=== PATIENT | male | born 1955 | race Caucasian/White ===

== ENCOUNTER → 2016-10-18 | Outpatient (CLI) | payer OTHER | LOC: FCPNEURO 12:00 | PROVIDERS: ATTEND Psychiatry & Neurology Sleep Medicine | DX: G47.33 Obstructive sleep apnea (adult) (pediatric) (principal) ==

== ENCOUNTER → 2016-12-22 | Outpatient (CLI) | payer OTHER | LOC: FIMAGING 15:49 | PROVIDERS: ATTEND Internal Medicine Critical Care Medicine | DX: R07.9 Chest pain, unspecified (principal) ==

== ENCOUNTER 2018-01-03 12:01 | Observation (INO) | payer OTHER ==
--- NOTE | 2018-01-03 12:22 | CPEKG ---
Heart Rate: 144 RR Interval: 417 P-R Interval: 136 QRSD Interval: 102 QT Interval: 312 QTC Interval: 483 P [place]: 0 QRS [place]: 66 T Wave [place]: 18 EKG Severity - ABNORMAL ECG - EKG Impression: SINUS TACHYCARDIA EKG Impression: LATERAL INFARCT, AGE INDETERMINATE EKG Impression: BORDERLINE T ABNORMALITIES, INFERIOR LEADS EKG Impression: BORDERLINE PROLONGED QT INTERVAL Electronically Signed By: Rae Coleman 03-Jan-2018 14:35:19
[2018-01-03] MEDS ORDERED: methylPREDNISolone SOD SUCC 125 MG/2 ML VIAL IVP ONE (12:26)
[2018-01-03] MEDS ORDERED: NS 500 ML IV ONE ×3 (12:26→14:48)
[2018-01-03 12:37] LABS: PLATELET COUNT 291 10^3/uL (150-400)
[2018-01-03 12:46] LABS: INR 0.99 (0.83-1.16); PROTIME(PATIENT) 13.3 SEC (12.0-15.0)
[2018-01-03] MEDS: IPRATROPIUM/ALBUTEROL 3 ML DEYVIAL IH ONE ×2 (12:51→12:52)
[2018-01-03] MEDS ORDERED: IPRATROPIUM/ALBUTEROL 3 ML DEYVIAL ONE (12:54)
--- NOTE | 2018-01-03 13:19 | EDPHY ---
H & P Time Seen by Provider: 01/03/18 12:25 HPI/ROS: HPI Shortness of breath, chest pains. 62-year-old male by private vehicle from the office of his primary care physician. This patient has a history of COPD. He reports that for the last 1- 2 months he has had intermittent exacerbations of his COPD. He takes Spiriva and albuterol at home. He reports that his symptoms are much worse with any exertion. He reports significantly worse shortness of breath with exertion. He reports he had 1 of these episodes today and went to see his primary care physician. He reports having a sensation of a fast heart rate and he also gets chest pain with exertion on top of the shortness of breath which she describes as a pressure and aching like sensation. He was quickly evaluated at his primary care physician's office and sent to our emergency department for evaluation. At rest he feels mildly short of breath but does not have chest pain. He states that he still feels like his heart is racing. He reports this is typical of his previous COPD exacerbations. ROS: Constitutional: No fever, no chills. No weakness. Eyes: No discharge. No changes in vision. ENT: No sore throat. No nasal congestion or rhinorrhea. Respiratory: No cough. As above. Cardiac: As above. Gastrointestinal: No abdominal pain, no vomiting, no diarrhea. Genitourinary: No hematuria. No dysuria or increased frequency with urination. Musculoskeletal: No back pain. No neck pain. No myalgias or arthralgias. Skin: No rashes. Neurological: No headache. No focal weakness or altered sensation. Past medical history: COPD, MRSA cellulitis of the finger, arthritis of the cervical and lumbar spine, peripheral neuropathies, hepatitis-C. Social history: Denies smoking. No alcohol. Currently here by himself. Physical Exam: General Appearance: Alert, anxious but not in distress. Mildly dyspneic at rest This patient is responding to questions appropriately and in full sentences. This patient appears well-hydrated and well-nourished. Eyes: Pupils equal and round no pallor or injection. No lid edema, erythema or injection. Respiratory: There are no retractions, lung sounds decreased bilaterally with shallow air movement and scant rhonchi. Mild tachypnea at 22 Cardiovascular: Regular rate and rhythm. Tachycardia. No murmur appreciated. Gastrointestinal: Abdomen is soft and nontender, no masses, bowel sounds normal. No focal tenderness at McBurney's point. No Duenas sign. Neurological: Motor sensory function is grossly intact. Cranial nerves are normal. Gait is normal. Skin: Warm and dry, no rashes. Musculoskeletal: Neck is supple and nontender. Extremities are symmetrical. All joints range without pain or impingement. Psychiatric: No agitation. No depression. Database: EKG: EKG time is 12:20 p.m.; EKG shows a narrow complex normal sinus tachycardia versus possible atrial flutter with a ventricular rate of 144. The [place], QRS, QT intervals are within normal limits. There are no ST-T wave changes indicative of ischemic or injury pattern. No evidence of right heart strain. Interpreted by me. EKG time is 1:18 p.m.; EKG shows a narrow complex sinus tachycardia versus atrial flutter ventricular rate of 141. The [place], QRS, QT intervals are within normal limits. There are no ST-T wave changes indicative of ischemic or injury pattern. No evidence of right heart strain. Interpreted by me. EKG time is 2:04 p.m.; EKG shows a narrow complex atrial flutter with predominantly 2-1 and 3-1 av block. Otherwise unchanged from above. Interpreted by me. Imaging: Chest x-ray AP portable; the cardiac mediastinal silhouette is unremarkable. Chronically elevated left hemidiaphragm. No evidence of infiltrate or pneumothorax. No acute cardiopulmonary disease process noted. Interpreted by me. Procedures: Emergency department course: IV placed. Vital signs reviewed. Patient placed on a guest relation officer. He was started on IV normal saline with 500 cc to be given over the next 30 min. He was initially given albuterol/Atrovent nebulizers x3. He was given 125 mg of IV Solu-Medrol. 1:30 p.m., patient re-evaluated. Feeling better after above medications. Improved air movement on pulmonary exam but still diminished. Patient pulse oximetry is 94% on room air. EKG was repeated. I feel this is more atrial flutter. He will be started on IV diltiazem, 25 mg slow push. 1:50 p.m., patient re-evaluated. Resting comfortably at this time. Blood pressure 106/73. clinical research monitor shows a narrow complex sinus rhythm with ventricular rate of 88. Room air pulse oximetry currently 95%. EKG to be repeated. Patient will be started on a steady state diltiazem drip at 10 milligrams/hour. Hospitalist evelio. 2:00 p.m., spoke with on-call hospitalist. Case discussed in detail. Patient accepted for admission under the care of Dr. Sierra. His remaining emergency department course under my care has been uneventful. He was admitted to telemetry in stable and improved condition. Differential Diagnosis: The differential diagnosis on this patient includes but is not limited to COPD exacerbation, sinus tachycardia, atrial flutter, SVT. This represents a partial list of diagnoses considered. These considerations are based on history , physical exam, past history, reassessment and diagnostic testing. Smoking Status: Former smoker Constitutional: Initial Vital Signs Temperature (C) 36.5 C 01/03/18 12:07 Heart Rate 142 H 01/03/18 12:07 Respiratory Rate 20 01/03/18 12:07 Blood Pressure 99/75 L 01/03/18 12:07 O2 Sat (%) 92 01/03/18 12:07 O2 Delivery Mode Nasal Cannula O2 (L/minute) 4 Allergies/Adverse Reactions: No Known Allergies Allergy (Verified 07/02/12 18:07) Home Medications: Medication Instructions Recorded Albuterol [Proventil Inhaler HFA 1 - 2 puffs IH Q4-6PRN PRN 01/03/18 (*)] Aspirin [Aspirin 81mg (*)] 81 mg PO DAILY 01/03/18 Citalopram Hydrobromide [Celexa] 40 mg PO DAILY 01/03/18 Fluticasone/Salmeter 500/50Mcg 1 puffs IH BID 01/03/18 [Advair 500/50 (*)] Umeclidinium [place] [Incruse 1 puffs IH DAILY 01/03/18 Ellipta] Medical Decision Making Critical Care Time: I spent a total of 37 minutes of critical care time in obtaining history, performing a physical exam, bedside monitoring of interventions, collecting and interpreting tests and discussion with consultants but not including time spent performing procedures. - Data Points Laboratory Results: Laboratory Results 01/03/18 12:30 01/03/18 12:30 Medications Given: Albuterol/Ipratropium (Duoneb) 3 ml IH QID NIMESH Stop: 07/02/18 15:59 Last Admin: 01/04/18 05:24 Dose: 3 ml Enoxaparin Sodium (Lovenox) 100 mg SC BID [facility] Stop: 07/02/18 20:59 Last Admin: 01/03/18 19:50 Dose: 100 mg Fluticasone/Salmeterol (Advair) 1 puffs IH BID NIMESH Stop: 07/02/18 20:59 Last Admin: 01/03/18 20:25 Dose: 1 puffs Discontinued Medications Albuterol/Ipratropium (Duoneb) 9 ml IH EDNOW ONE Stop: 01/03/18 12:27 Last Admin: 01/03/18 12:52 Dose: 3 ml Diltiazem HCl (Cardizem 25 Mg/5 Ml Vial) 25 mg IVP EDNOW ONE Stop: 01/03/18 13:29 Last Admin: 01/03/18 13:34 Dose: 25 mg Sodium Chloride (Ns) 500 mls @ 1,000 mls/hr IV EDNOW ONE PRN Reason: Protocol Stop: 01/03/18 12:55 Last Admin: 01/03/18 12:53 Dose: 500 mls Diltiazem HCl 125 mg/ Dextrose 125 mls @ 0 mls/hr IV EDNOW ONE; As Directed PRN Reason: Protocol Stop: 01/03/18 13:29 Last Admin: 01/03/18 14:06 Dose: 125 mls Sodium Chloride (Ns) 500 mls @ 1,000 mls/hr IV EDNOW ONE PRN Reason: Protocol Stop: 01/03/18 13:59 Last Admin: 01/03/18 13:36 Dose: 500 mls Sodium Chloride (Ns) 500 mls @ 0 mls/hr IV ONCE ONE PRN Reason: Wide Open Stop: 01/03/18 14:49 Last Admin: 01/03/18 14:49 Dose: 500 mls Methylprednisolone Sodium Succinate (Solu-Medrol) 125 mg IVP EDNOW ONE Stop: 01/03/18 12:27 Last Admin: 01/03/18 12:52 Dose: 125 mg Departure - Departure Disposition: [facility] Acute Clinical Impression: Supraventricular tachycardia, COPD exacerbation
--- NOTE | 2018-01-03 13:21 | CPEKG ---
Heart Rate: 141 RR Interval: 426 P-R Interval: 152 QRSD Interval: 88 QT Interval: 292 QTC Interval: 447 P [place]: 262 QRS [place]: 67 T Wave [place]: 47 EKG Severity - ABNORMAL ECG - EKG Impression: ECTOPIC ATRIAL TACHYCARDIA EKG Impression: MINIMAL ST DEPRESSION, INFERIOR LEADS Electronically Signed By: Rae Coleman 03-Jan-2018 14:35:19
[2018-01-03] MEDS ORDERED: DILTIAZEM 25 MG/5 ML VIAL IVP ONE (13:28)
[2018-01-03] MEDS ORDERED: DILTIAZEM 125 MG in D5W 125 ML IV ONE (13:28)
--- NOTE | 2018-01-03 14:06 | CPEKG ---
Heart Rate: 90 RR Interval: 667 QRSD Interval: 98 QT Interval: 404 QTC Interval: 495 QRS [place]: 65 T Wave [place]: 37 EKG Severity - ABNORMAL ECG - EKG Impression: A-FLUTTER W/ PREDOM 3:1 AV BLOCK, A-RATE 283 EKG Impression: ST DEPRESSION, CONSIDER ISCHEMIA, INF LEADS EKG Impression: BORDERLINE PROLONGED QT INTERVAL Electronically Signed By: Rae Coleman 03-Jan-2018 14:35:19
[2018-01-03] MEDS ORDERED: ALBUTEROL 3 ML DEYVIAL IH PRN (15:34)
[2018-01-03] MEDS ORDERED: PROMETHAZINE HCL 25 MG/ML INJ IVP PRN (15:34)
[2018-01-03] MEDS ORDERED: oxyCODONE IR 5 MG TAB PO PRN (15:34)
[2018-01-03] MEDS ORDERED: ONDANSETRON 4 MG/2 ML VIAL IVP PRN (15:34)
[2018-01-03] MEDS ORDERED: ACETAMINOPHEN 325 MG TAB PO PRN (15:34)
[2018-01-03] MEDS ORDERED: ONDANSETRON DISINTEGRATING 4 MG TAB PO PRN (15:34)
--- NOTE | 2018-01-03 15:46 | PDGENHP ---
History and Physical - Chief Complaint sob,fast heart rate - History of Present Illness 62 yo M with PMH of severe O2 dependent COPD presenting with c/o SOB, heart racing and chest pain with exertion. Patient notes that these sxs have been going on for about the last 2 months, actually worse about a month ago. Today he was seen by his PCP who noted that his heart was fast and irregular and recommended he come to the ER for further evaluation. He notes that he has had these bouts of worsening sob and chest and full body pain that are triggered by exertion. He states that the bouts are so severe that he feels as if he may lose consciousness when they occur. The sxs all improve with rest and time. His last severe bout like that was a couple of weeks or a month ago--he did not seek care at that time. In between he just has his usual shortness of breath which he does note is overall getting worse. He does not have a history of heart disease. He has not had swelling or pain in his legs. He has not had recent changes in his weight. History Information - Allergies/Home Medication List Allergies/Adverse Reactions: No Known Allergies Allergy (Verified 07/02/12 18:07) Home Medications: Albuterol [Proventil Inhaler HFA (*)] 1 - 2 puffs IH Q4-6PRN PRN 01/03/18 [Last Taken Unknown] Aspirin [Aspirin 81mg (*)] 81 mg PO DAILY 01/03/18 [Last Taken 01/03/18] Citalopram Hydrobromide [Celexa] 40 mg PO DAILY 01/03/18 [Last Taken Unknown] Fluticasone/Salmeter 500/50Mcg [Advair 500/50 (*)] 1 puffs IH BID 01/03/18 [ Last Taken 01/03/18] Umeclidinium [place] [Incruse Ellipta] 1 puffs IH DAILY 01/03/18 [Last Taken 04/15] I have personally reviewed and updated: family history, medical history, social history, surgical history - Past Medical History COPD Additional medical history: hepatitis C--reportedly cured. MRSA cellulitis. peripheral neuropathy. chronic hypoxic respiratory failure--2-3L at baseline - Surgical History Reports: no pertinent surgical hx - Family History Positive for: diabetes type II (mother), stroke (father and sister) - Social History Smoking Status: Former smoker (quit in 2013) Alcohol Use: Sober Drug Use: None Additional social history: single, on disability Review of Systems Review of Systems: ROS: 10pt was reviewed & negative except for what was stated in HPI & below Physical Exam Physical Exam: Temp Pulse Resp BP Pulse Ox 36.8 C 85 17 104/76 96 01/03/18 15:32 01/03/18 15:32 01/03/18 15:32 01/03/18 15:32 01/03/18 15:32 Constitutional: no apparent distress, appears nourished Eyes: PERRL, anicteric sclera Ears, Nose, Mouth, Throat: moist mucous membranes, hearing normal Cardiovascular: pulses symmetric bilaterally, tachycardia, No edema Respiratory: no respiratory distress, reduced air movement, expiratory wheeze Gastrointestinal: normoactive bowel sounds, soft, non-tender abdomen, no palpable masses Genitourinary: no bladder tenderness Skin: warm, normal color Musculoskeletal: full muscle strength, no muscle tenderness, No asymmetric calves Neurologic: AAOx3 Psychiatric: interacting appropriately, not anxious, not encephalopathic Lab Data & Imaging Review 01/03/18 12:30 01/03/18 12:30 WBC 15.79 10^3/uL (3.80-9.50) H 01/03/18 12:30 RBC 4.53 10^6/uL (4.40-6.38) 01/03/18 12:30 Hgb 14.1 g/dL (13.7-17.5) 01/03/18 12:30 Hct 42.3 % (40.0-51.0) 01/03/18 12:30 MCV 93.4 fL (81.5-99.8) 01/03/18 12:30 MCH 31.1 pg (27.9-34.1) 01/03/18 12:30 MCHC 33.3 g/dL (32.4-36.7) 01/03/18 12:30 RDW 13.1 % (11.5-15.2) 01/03/18 12:30 Plt Count 291 10^3/uL (150-400) 01/03/18 12:30 MPV 9.6 fL (8.7-11.7) 01/03/18 12:30 Neut % (Auto) 65.9 % (39.3-74.2) 01/03/18 12:30 Lymph % (Auto) 23.6 % (15.0-45.0) 01/03/18 12:30 [place] % (Auto) 7.6 % (4.5-13.0) 01/03/18 12:30 Eos % (Auto) 1.9 % (0.6-7.6) 01/03/18 12:30 Baso % (Auto) 0.3 % (0.3-1.7) 01/03/18 12:30 Nucleat RBC Rel Count 0.0 % (0.0-0.2) 01/03/18 12:30 Absolute Neuts (auto) 10.40 10^3/uL (1.70-6.50) H 01/03/18 12:30 Absolute Lymphs (auto) 3.73 10^3/uL (1.00-3.00) H 01/03/18 12:30 Absolute Monos (auto) 1.20 10^3/uL (0.30-0.80) H 01/03/18 12:30 Absolute Eos (auto) 0.30 10^3/uL (0.03-0.40) 01/03/18 12:30 Absolute Basos (auto) 0.05 10^3/uL (0.02-0.10) 01/03/18 12:30 Absolute Nucleated RBC 0.00 10^3/uL (0-0.01) 01/03/18 12:30 Immature Gran % 0.7 % (0.0-1.1) 01/03/18 12:30 Immature Gran # 0.11 10^3/uL (0.00-0.10) H 01/03/18 12:30 PT 13.3 SEC (12.0-15.0) 01/03/18 12:30 INR 0.99 (0.83-1.16) 01/03/18 12:30 APTT 23.0 SEC (23.0-38.0) 01/03/18 12:30 D-Dimer 0.51 ug/mLFEU (0.00-0.50) H 01/03/18 12:30 Sodium 143 mEq/L (135-145) 05/08/18 12:30 Potassium 4.2 mEq/L (3.5-5.2) 01/03/18 12:30 Chloride 105 mEq/L (97-110) 01/03/18 12:30 Carbon Dioxide 26 mEq/l (22-31) 01/03/18 12:30 Anion Gap 12 mEq/L (8-16) 01/03/18 12:30 BUN 16 mg/dL (7-23) 01/03/18 12:30 Creatinine 0.9 mg/dL (0.7-1.3) 01/03/18 12:30 Estimated GFR > 60 01/03/18 12:30 Glucose 98 mg/dL (70-100) 01/03/18 12:30 Calcium 8.8 mg/dL (8.5-10.4) 01/03/18 12:30 Troponin I < 0.012 ng/mL (0.000-0.034) 01/03/18 12:30 NT-Pro-B Natriuret Pep 211 pg/mL (0-125) H 01/03/18 12:30 Visualized and Interpreted Chest x-ray results: Yes Chest X-Ray results: no infiltrate, other (mild CM, chronically elevated left hemidiaphragm) Visualized and Interpreted EKG results: Yes EKG additional interpertation: a flutter 3:1 conduction Assessment & Plan Assessment: Supraventricular tachycardia (Acute) COPD exacerbation (Acute) 62 yo M with PMH of severe O2 dependent COPD pw atrial flutter and c/o chest pain with exertion # atrial flutter: with rates up to the 140s, started on diltiazem in ER with improved rate control. Sounds as though patient has been having symptomatic bouts of a flutter in the last couple of months with exertion. Plan will be to monitor on telemetry, trend serial trops and obtain echo in am. Asked cardiology to eval in am for ongoing management. If echo concerning will need further ischemic w/u. # exertional chest pain: as above and suspect this has been occurring in setting of a flutter, echo and perhaps further ischemic w/u stress versus cath # severe copd: without e/o acute exacerbation however air movement very limited , continue ellipta and advair and prn nebs, was given IV steroids in ER x 1 but will hold off on continuing this at this time given lack of evidence of exacerbation # chronic hypoxic respiratory failure: chronically on 2-3L but per his report intermittently more if his o2 sats are low or if he feels sob, currently appears to be at baseline # leukocytosis: mildly elevated and without e/o pna or other localizing sxs to suggest infection, will trend but suspect stress response # observation status, will likely require < 48 hours stay for eval/mgmt of above Patient new to my care. Old records reviewed and summarized as above. Care plan reviewed with ER doctor including plans for tele monitoring.
[2018-01-03] MEDS ORDERED: DILTIAZEM 125 MG in D5W 125 ML IV SCH (16:45)
[2018-01-03] MEDS: IPRATROPIUM/ALBUTEROL 3 ML DEYVIAL IH SCH ×2 (17:39→20:26)
[2018-01-03] MEDS: ENOXAPARIN 100 MG/ML SYR SC SCH (19:50)
[2018-01-03] MEDS: FLUTICASONE/SALMETER 500/50MCG DISKUS IH SCH (20:25)
[2018-01-03] MEDS ORDERED: ENOXAPARIN 40 MG/0.4 ML SYR SC SCH (21:00)
[2018-01-04 05:00] LABS: PLATELET COUNT 239 10^3/uL (150-400)
[2018-01-04] MEDS: IPRATROPIUM/ALBUTEROL 3 ML DEYVIAL IH SCH ×3 (05:24→16:24)
[2018-01-04] MEDS ORDERED: ATROPINE SULFATE 1 MG/10 ML SYR IVP ONE (08:26)
--- NOTE | 2018-01-04 08:57 | CPEKG ---
Heart Rate: 88 RR Interval: 682 QRSD Interval: 150 QT Interval: 404 QTC Interval: 489 QRS [place]va: 68 T Wave Ava: 65 EKG Severity - ABNORMAL ECG - EKG Impression: A-FLUTTER W/ PREDOM 3:1 AV BLOCK, A-RATE 272 EKG Impression: NONSPECIFIC INTRAVENTRICULAR CONDUCTION DELAY EKG Impression: LATERAL INFARCT, AGE INDETERMINATE Electronically Signed By: Alexandr Berry 06-Jan-2018 13:06:59
[2018-01-04] MEDS ORDERED: NON-FORMULARY NEW DRUG (Citalopram Hydrobromide [Celexa] 40 MG) PO SCH (09:00)
[2018-01-04] MEDS ORDERED: ASPIRIN 81 MG CHEWABLE TAB PO SCH (09:00)
[2018-01-04] MEDS ORDERED: ENOXAPARIN 40 MG/0.4 ML SYR SC SCH (09:00)
[2018-01-04] MEDS ORDERED: CITALOPRAM 20 MG TAB PO SCH (09:00)
[2018-01-04] MEDS ORDERED: UMECLIDINIUM BROMIDE IH SCH ×2 (09:00)
[2018-01-04] MEDS: FLUTICASONE/SALMETER 500/50MCG DISKUS IH SCH (09:50)
[2018-01-04] MEDS: ENOXAPARIN 100 MG/ML SYR SC SCH (09:54)
--- NOTE | 2018-01-04 10:04 | HOSPPROG ---
Hospitalist Progress Note Assessment/Plan: 62 yo M w 02 dependent copd admitted w new aflutter w RVR aflutter: new rate controlled on dilt gtt therapeutic enoxaparin started ALLY cardioversion today CHRF: on 02 at baseline breathing, per pt, is at baseline cxr w no focal infiltrate (interp by me) chest pressure: outpt stress normal trop copd: continue meds proph: anticoagulated dispo: pending results of cardioversion Subjective: does not think he is having a copd flare. ekg's w aflutter ( multiple interp by me). case d/w dr carroll Objective: Vital Signs Temp Pulse Resp BP Pulse Ox 36.8 C 86 17 109/75 97 01/04/18 07:28 01/04/18 09:59 01/04/18 09:59 01/04/18 07:28 01/04/18 09:59 Laboratory Results 01/04/18 03:46 01/04/18 03:46 01/03/18 01/04/18 01/05/18 05:59 05:59 05:59 Intake Total 1950 Output Total 700 Balance 1250 PT 13.3 SEC (12.0-15.0) 01/03/18 12:30 INR 0.99 (0.83-1.16) 01/03/18 12:30 - Physical Exam Constitutional: no apparent distress, appears nourished Eyes: PERRL, anicteric sclera Ears, Nose, Mouth, Throat: moist mucous membranes, hearing normal Cardiovascular: irregularly irregular, No systolic murmur, No tachycardia Respiratory: no respiratory distress, no rales or rhonchi Gastrointestinal: normoactive bowel sounds, soft, non-tender abdomen Genitourinary: no bladder fullness, No abbott in urethra Skin: warm, normal color Musculoskeletal: full muscle strength Neurologic: AAOx3 Psychiatric: interacting appropriately ICD10 Worksheet Patient Problems: Problems Problem Status Onset COPD exacerbation Acute Supraventricular tachycardia Acute Acute respiratory failure Acute COPD with acute exacerbation Acute Community acquired bacterial pneumonia Acute
--- NOTE | 2018-01-04 10:10 | GCON ---
[f rep st] CONSULTATION DATE OF CONSULTATION: 01/04/2018 CHIEF COMPLAINT: We have been asked by Dr. Soria to evaluate this patient with a chief complaint of atrial flutter. HISTORY OF PRESENT ILLNESS: The patient is a 62-year-old gentleman with a history of O2 dependent CO PD, who presented to the emergency department on 01/03/2018 with palpitations. The patient was in hi s usual state of health until approximately 1 month prior to admission, when he noted the abrupt onse t of palpitations. The patient states that his heart rate was approximately 150 beats per minute on pulse oximeter monitoring. The patient denies obvious precipitating factors. Since the onset of pal pitations, patient has noted he is more short of breath than usual and has also noticed some chest ti ghtness across his chest. The patient states his physical activity has declined significantly as a r esult of these symptoms. The patient does report a history of waking up short of breath. This has b een present for approximately 1 year and has not changed recently. The patient denies a previous his tory of coronary artery disease. Although he does have risk factors including age, and tobacco use. No previous history of arrhythmias, stroke, or TIA. PAST MEDICAL HISTORY: COPD. MEDICATIONS: Please see medicine reconciliation form. ALLERGIES: No known drug allergies. SOCIAL HISTORY: Patient moved to [place] in 2012. He is no longer smoking. He denies problems wit h alcohol. FAMILY HISTORY: Negative for coronary artery disease. Patient does report a history of stroke withi n the family. REVIEW OF SYSTEMS: A 10-point review of systems is negative, except as noted in HPI. PHYSICAL EXAMINATION: GENERAL: The patient is resting in bed. He appears to be in no acute distres s. VITAL SIGNS: Temperature is afebrile. Pulse is 86, blood pressure 109/75, respiratory rate is 2 2, SaO2 is 97% on 4 L nasal cannula. HEENT: Normocephalic atraumatic. Extraocular muscles intact. Patient does have evidence of dry blood coming from his nose. LUNGS: Coarse bronchial breath sound s bilaterally. CARDIOVASCULAR: Regular rate and rhythm and rhythm. S1, S2. No murmurs, rubs, or g allops appreciated. ABDOMEN: Soft, nontender. No hepatosplenomegaly. Aorta could not be adequatel y palpated. EXTREMITIES: Mild bilateral lower extremity edema. SKIN: No evidence of rashes. NEUR O: Nonfocal. LABORATORY: White blood cell count 10.32, hemoglobin 12.4, hematocrit 37.8, platelet count is 239. Sodium 143, potassium 5.3, chloride 106, CO2 29, BUN 15, creatinine 0.7. Troponin within normal limi ts x3. D-dimer is borderline elevated at 0.51. EKG demonstrates atrial flutter at a heart rate of 8 8 beats per minute. There are no acute ST or T-wave changes. ASSESSMENT AND PLAN: The patient is a 62-year-old gentleman with return: 1. Atrial flutter. The patient presents with new onset of atrial flutter. There are no obvious pre cipitating factors. The onset was approximately 1 month ago based on history. He is currently rate controlled with diltiazem and anticoagulated with Lovenox. Echocardiogram in 2014 demonstrated no si gnificant structural heart disease. Reviewed treatment strategies with the patient including rate co ntrol/anticoagulation, ALLY cardioversion, and anticoagulation followed by cardioversion. Patient wis hes to pursue ALLY cardioversion given he is quite symptomatic when in atrial flutter. His [id number] score is 0. We will plan on anticoagulating patient with Eliquis for 1 month post procedure at which time, he could switch to aspirin if no recurrent episodes are found and no significant structural he art disease identified by recent echocardiogram. 2. Chest pain. The patient reports onset of chest pain described as a tightness. The chest discomf ort is associated with the onset of atrial flutter. Given his risk factors. [facility] for risk stratification after conversion to normal sinus rhythm. /[id number]/MODL
--- NOTE | 2018-01-04 11:44 | ECHO ---
[email or web address] [address] Main: [phone] Fax: [email or web address] Echocardiogram Name: ELINA MARSH MR#: [id number] Study Date: 01/03/2018 Study Time: 02:02 PM Date of : 1955 Age: 62 year(s) Height: 188 cm (74 in.) Weight: 104.33 kg (230 lb.) BSA: 2.31 m2 Gender: Male Examination: Echo Indication: NEW DX A FLUTTER Image Quality: Technically Difficult Contrast: Requested by: Jessee Soria BP: 98 mmHg/78 mmHg Heart Rate: Rhythm: Indication: NEW DX A FLUTTER Procedure Staff Slumber Room Attendant: Barbra Klein RDCS Reading Physician: Amber Tesfaye MD Requesting Provider: Conclusions: Normal size left ventricle. Borderline concentric LV hypertrophy. Mildly reduced systolic LV function. EF is 42 %. No regional wall motion abnormality. Normal size right ventricle. Normal RV function. The left atrium is mildly dilated. The right atrium is mildly dilated. Mild mitral valve regurgitation is present. Mild tricuspid regurgitation is present. The pulmonary artery pressure is normal. Right ventricular systolic pressure measures 17mmHg. Compared with 01/19/2015 LV systolic function is now decreased. Esimtated PA systolic pressure is lower on current study Measurements: Chambers Valvular Assessment AV/MV Valvular Assessment TV/PV Normal Normal Normal Name Value Range Name Value Range Name Value Range Ao Michaelle (2D): 2.8 cm (1.4 cm-2.6 AV meanP mmHg ( - ) TR Vmax: 1.70 mm/s ( - ) cm) LORI (VTI): 1.5 cm ( - ) TR PGmax: 12 mmHg ( - ) IVSd (2D): 1.1 cm (0.6 cm-1.1 MV E Vmax: 0.98 m/s ( - ) syst. PAP: 17 mmHg ( - ) cm) MV A Vmax: 0.49 m/s ( - ) PV Vmax: 0.77 m/s (0.6 m/s-0.9 LVDd (2D): 5.5 cm (4.2 cm-5.9 MV E/A: 2.00 ( - ) m/s) cm) MV PHT: 0.042 s ( - ) PV PGmax: 2 mmHg ( - ) LVDs (2D): 4.2 cm (2.1 cm-4 cm) MVA (PHT): 5.2 s ( - ) LVPWd (2D): 1.0 cm (0.6 cm-1 cm) Patient: ELINA MARSH Study Date: 01/03/2018 Page 1 of 2 02:02 PM LVOTd 1.9 cm 1.9 cm mm LVEF (BP): 42 % (>=55 %) RVDd(2D): 2.7 cm (1.9 cm-3.8 cmmm) Continued Measurements: Chambers Valvular Assessment AV/MV Valvular Assessment TV/PV Name Value Name Value Name Value LADs: 3.7 cm MV DecTime: 134 m/s CVP (est.): 5 mmHg LADs Lon.2 cm MV E' Septal: 0.10 m/s LA Area: 24.8 cm2 MV E/E' Septal: 9.40 LA Volume: 84 ml MV E/E' Lateral: 7.80 LA Volume Index: 36.4 ml/m2 RA Area: 19.4 cm2 Additional Vessels Name Value Ao Ascendin.1 cm Inferior Vena Cava: 2.2 cm Findings: Left Ventricle: Normal size left ventricle. Borderline concentric LV hypertrophy. Mildly reduced systolic LV function. EF is 42 %. No regional wall motion abnormality. Right Ventricle: Normal size right ventricle. Normal RV function. Left Atrium: The left atrium is mildly dilated. Right Atrium: The right atrium is mildly dilated. Mitral Valve: The mitral valve is normal in appearance and function. Mild mitral valve regurgitation is present. No mitral stenosis is present. Aortic Valve: The aortic valve is normal in appearance and function. There is no significant aortic valve regurgitation. No aortic valve stenosis is present. Tricuspid Valve: The tricuspid valve is normal in appearance and function. Mild tricuspid regurgitation is present. The pulmonary artery pressure is normal. Right ventricular systolic pressure measures 17mmHg. Pulmonic Valve: The pulmonic valve is normal in appearance and function. There is no pulmonic regurgitation seen. Aorta: The aorta is normal. Normal size aortic root measuring 2.8 cm. Normal size ascending aorta measuring 3.1 cm. IVC: The IVC is normal sized. Pericardium: No pericardial effusion. No pleural effusion. Exam Comments: Limited windows. Technically difficult due to patient body habitus. (No Signature Object) Patient: ELINA MARSH Study Date: 01/03/2018 Page 2 of 2 02:02 PM [id number]
[2018-01-04] MEDS ORDERED: PROPOFOL 200 MG/20 ML VIAL ONE ×2 (12:43)
[2018-01-04] MEDS ORDERED: ATROPINE SULFATE 1 MG/10 ML SYR ONE (12:47)
--- NOTE | 2018-01-04 12:59 | PDANEPAE ---
ANE History of Present Illness ALLY and sync. CV ANE Past Medical History - Cardiovascular History Hx Hypertension: No Hx Arrhythmias: Yes Hx Chest Pain: No Hx CHF / Valvular Disease: No Hx Palpitations: Yes - Pulmonary History Hx COPD: Yes Hx Asthma/Reactive Airway Disease: No Hx Recent Upper Respiratory Infection: No Hx Oxygen in Use at Home: Yes O2 in Use at Home (L/minute): 3 Hx Sleep Apnea: No - Endocrine History Hx Diabetes: No Hypothyroid: No Hyperthyroid: No Obesity: moderate - Renal History Hx Renal Disorders: No - Liver History Hx Hepatic Disorders: No - Neurological & Psychiatric Hx Hx Neurological and Psychiatric Disorders: No - Cancer History Hx Cancer: No - Chronic Pain History Chronic Pain: Yes - Surgical History Prior Surgeries: None ANE Review of Systems Review of Systems: - Exercise capacity METS (RN): 3 METS ANE Patient History - Allergies Allergies/Adverse Reactions: No Known Allergies Allergy (Verified 07/02/12 18:07) - Home Medications Home Medications: Albuterol [Proventil Inhaler HFA (*)] 1 - 2 puffs IH Q4-6PRN PRN 01/03/18 [Last Taken Unknown] Aspirin [Aspirin 81mg (*)] 81 mg PO DAILY 01/03/18 [Last Taken 01/03/18] Citalopram Hydrobromide [Celexa] 40 mg PO DAILY 01/03/18 [Last Taken Unknown] Fluticasone/Salmeter 500/50Mcg [Advair 500/50 (*)] 1 puffs IH BID 01/03/18 [ Last Taken 01/03/18] Umeclidinium [place] [Incruse Ellipta] 1 puffs IH DAILY 01/03/18 [Last Taken 04/15] - Smoking Hx Smoking Status: Former smoker - Alcohol Use Alcohol Use: Sober - Family Anes Hx Family Anes Hx: none ANE Labs/Vital Signs - Labs Result Diagrams: 01/04/18 03:46 01/04/18 03:46 - Vital Signs Blood Pressure: 109/75 Heart Rate: 86 Respiratory Rate: 17 O2 Sat (%): 97 Height: 187.96 cm Weight: 106.1 kg ANE Physical Exam - Airway Neck exam: FROM Mallampati Score: Class 2 Mouth exam: poor dentition (edentulous) - Pulmonary Pulmonary: clear to auscultation (distant) - Cardiovascular Cardiovascular: irregularly irregular - ASA Status ASA Status: III ANE Anesthesia Plan Anesthesia Plan: GA with mask
--- NOTE | 2018-01-04 13:27 | CPIP ---
[f rep st] INVASIVE CARDIAC PROCEDURE DATE OF PROCEDURE: 01/04/2018 PROCEDURE PERFORMED: ALLY cardioversion. INDICATION: Atrial flutter. Anticoagulation. Patient had been anticoagulated since admission with Lovenox 100 mg subcu twice daily. CONSENT: Signed and in front of chart. ANESTHESIA: Please see Anesthesia report. TRANSESOPHAGEAL ECHOCARDIOGRAM: Please see formal transesophageal echocardiogram report. Transesoph ageal echocardiogram demonstrated no evidence of thrombus in the left atrium or left atrial appendage . SPECIFICS: 1. Pads placed in anterior posterior position. 2. 200 joules synchronized delivered x1 with return to normal sinus rhythm. COMPLICATIONS: None. CONCLUSIONS: Status post successful DC cardioversion of atrial flutter back to normal sinus rhythm. /[id number]/MODL
--- NOTE | 2018-01-04 13:30 | CPEKG ---
Heart Rate: 68 RR Interval: 882 P-R Interval: 124 QRSD Interval: 104 QT Interval: 424 QTC Interval: 451 P Franklin: 102 QRS [place]: 74 T Wave Franklin: 70 EKG Severity - ABNORMAL ECG - EKG Impression: SINUS RHYTHM Electronically Signed By: Alexandr Berry 05-Jan-2018 12:46:15
--- NOTE | 2018-01-04 13:35 | POSTANESTH ---
Post Anesthetic Evaluation Cardiovascular Status: Similar to Pre-Op Cond Respiratory Status: Similar to Pre-op Cond. Level of Consciousness/Mental Status: Can Participate in Eval Pain Control: Adequate, Prn Tx Ordered Nausea/Vomiting Control: Adequate, Prn Tx Ordered Complications Possibly Related to Anesthesia: None Noted
[2018-01-04 14:37] VITALS: BP 112/67
--- NOTE | 2018-01-04 15:05 | ASMTCMCOM ---
CM Note CM Note Notes: Patient admitted for CARMICHAEL and SOB. He has a long hx of O2 dependent COPD. Found to have new A Flutter with RVR. Today, he had a cardioversion and successfully converted to NSR. PT/OT ordered and pending. Patient lives with his elderly father and is normally independent in ADLs. If he has any discharge needs, Case Management will assist. Date Signed: 01/04/2018 03:04 PM Electronically Signed By:Jailene Crum RN
--- NOTE | 2018-01-04 16:03 | GDS ---
[f rep st] DISCHARGE SUMMARY DISCHARGE DIAGNOSES: 1. Atrial flutter with a rapid ventricular response. 2. Oxygen dependent chronic obstructive pulmonary disease. 3. Chronic hypoxemic respiratory failure. Patient presented with palpitations that had come and gone. He was found to be in atrial flutter wit h rapid ventricular response. This slowed down with diltiazem drip. He was successfully cardioverte d today with ALLY. He is discharged home today on diltiazem and Eliquis as well as additional medicin es with outpatient followup with Dr. Gino Taylor. /[id number]/MODL
[2018-01-04] MEDS ORDERED: APIXABAN 5 MG TAB PO SCH (21:00)
[2018-01-05] MEDS ORDERED: DILTIAZEM CD 120 MG CAP PO SCH (09:00)
== END 2018-01-04 17:20 | disposition home or self-care (01) ==
LOC: F2W 15:48
PROVIDERS: ADMIT Internal Medicine; ATTEND Internal Medicine
PROC: 5A2204Z Restoration of Cardiac Rhythm, Single (ICD-10-PCS; principal; 2018-01-03)
DX: I48.92 Unspecified atrial flutter (principal); J44.9 Chronic obstructive pulmonary disease, unspecified; J96.91 Respiratory failure, unspecified with hypoxia; Z99.81 Dependence on supplemental oxygen
CPT/HCPCS: 71045; 92960; 93005; 93306; 96361; 96365; 96375; 97165; 99291; G0378; G8987; G8988; G8989; J1650; J2704; J2930; J0461

== ENCOUNTER 2018-02-05 08:18 | Inpatient (IN) | payer OTHER ==
--- NOTE | 2018-02-05 08:34 | CPEKG ---
Heart Rate: 144 RR Interval: 417 P-R Interval: 124 QRSD Interval: 94 QT Interval: 292 QTC Interval: 452 P [place]: 268 QRS [place]: 71 T Wave [place]: 12 EKG Severity - ABNORMAL ECG - EKG Impression: Atrial flutter with RVR EKG Impression: REPOL ABNRM SUGGESTS ISCHEMIA, DIFFUSE LEADS Electronically Signed By: Lili Rosa 05-Feb-2018 15:01:00
[2018-02-05] MEDS ORDERED: methylPREDNISolone SOD SUCC 125 MG/2 ML VIAL IVP ONE (08:35)
[2018-02-05] MEDS ORDERED: DILTIAZEM 125 MG in D5W 125 ML IV ONE (08:35)
[2018-02-05] MEDS ORDERED: DILTIAZEM 25 MG/5 ML VIAL IVP ONE (08:35)
[2018-02-05] MEDS ORDERED: NS 1,000 ML IV ONE (08:35)
--- NOTE | 2018-02-05 08:44 | EDPHY ---
H & P Stated Complaint: SOB, fatigue Time Seen by Provider: 02/05/18 08:24 HPI/ROS: CHIEF COMPLAINT: Shortness of breath HISTORY OF PRESENT ILLNESS: 62-year-old male with oxygen-dependent COPD and atrial flutter presents with shortness of breath. Onset of shortness of breath 2 days ago, associated with a moist cough. Using DuoNeb up to 10 times a day, just had a DuoNeb prior to arrival. Recently taken off steroids. No fever. New onset of atrial flutter 3 weeks ago, status post cardioversion. He is on diltiazem and Eliquis. 2.5 wk h/o persistently high heart rate in the 140s. He did not take diltiazem or Eliquis today. No chest pain or dizziness. REVIEW OF SYSTEMS: complete 10 point ROS negative except at noted in the HPI - Personal History Current Tetanus/Diphtheria Vaccine: Yes - Medical/Surgical History PMH: Oxygen-dependent COPD, 4-5 L oxygen by nasal cannula Hx Asthma: Yes Hx Chronic Respiratory Disease: Yes Hx Diabetes: No Hx Cardiac Disease: No Hx Renal Disease: No Hx Cirrhosis: No Hx Alcoholism: No Hx HIV/AIDS: No Hx Splenectomy or Spleen Trauma: No Other PMH: COPD, MRSA finger cellulitis wound 06/2012, peripheral neuropathy, hep C - Family History Significant Family History: No pertinent family hx - Social History Smoking Status: Former smoker Alcohol Use: Sober Drug Use: None Additional Social History: Lives in own home - Physical Exam Exam: General Appearance: Alert, pleasant Eyes: Pupils equal and round, no conjunctival pallor or injection ENT, Mouth: Mucous membranes moist Neck: Normal inspection Respiratory: Tachypnea, Diffuse inspiratory and expiratory wheezing Cardiovascular: Regular tachycardia Gastrointestinal: Abdomen is soft and nontender Neurological: A&O, nonfocal exam Skin: Warm and dry Extremities: Normal inspection Psychiatric: Mood and affect normal Constitutional: Initial Vital Signs Temperature (C) 36.8 C 02/05/18 08:18 Heart Rate 140 H 02/05/18 08:18 Respiratory Rate 20 02/05/18 08:18 Blood Pressure 102/76 02/05/18 08:18 O2 Sat (%) 96 02/05/18 08:18 O2 Delivery Mode Nasal Cannula O2 (L/minute) 5 Allergies/Adverse Reactions: No Known Allergies Allergy (Verified 07/02/12 18:07) Home Medications: Medication Instructions Recorded Albuterol [Proventil Inhaler HFA 1 - 2 puffs IH Q4 PRN 01/03/18 (*)] Aspirin [Aspirin 81mg (*)] 81 mg PO DAILY 01/03/18 Fluticasone/Salmeter 500/50Mcg 1 puffs IH BID 01/03/18 [Advair 500/50 (*)] Umeclidinium [place] [Incruse 1 puffs IH DAILY 01/03/18 Ellipta] Apixaban [Eliquis] 5 mg PO BID #60 tab 01/04/18 Omeprazole 20 mg PO DAILY PRN 02/02/18 Diltiazem Cd [Cardizem ER 120 MG 240 mg PO DAILY 02/05/18 (*)] Herbals/Supplements -Info Only 1 ea PO DAILY 02/05/18 Ipratropium/Albuterol [Duoneb (*)] 3 ml IH Q6 PRN 02/05/18 Medical Decision Making - Diagnostics EKG Interpretation: EKG interpreted by me reveals atrial flutter, ventricular rate 144. Interpretation abnormal EKG Imaging Results: Imaging Impressions Chest X-Ray 02/05/18 08:25 Impression: 1. Bronchitis/airways disease. 2. No focal pneumonia. 3. Chronically elevated left hemidiaphragm. Imaging: I viewed and interpreted images myself ED Course/Re-evaluation: This patient presents in atrial flutter with RVR and with a COPD exacerbation. Blood pressure is borderline low, so 1 L of normal saline given. Solu-Medrol 125 mg IV given. Diltiazem 10 mg IV, followed by a diltiazem drip. Held off on DuoNeb initially, given the tachycardia and recent overuse of duo nebs. Heart rate decreased to 100-110 after bolus of IV diltiazem. Blood pressure remained adequate. Diltiazem drip IV initiated. Chest x-ray reveals no evidence of pneumonia. The hospitalist service was consulted for admission for COPD exacerbation and atrial fib flutter with RVR. I spent a total of 40 minutes of critical care time in obtaining history, performing a physical exam, bedside monitoring of interventions, collecting and interpreting tests and discussion with consultants but not including time spent performing procedures. Differential Diagnosis: Differential diagnosis includes though it is not limited to pneumonia, pneumothorax, pulmonary embolism, aortic dissection, pericarditis, acute coronary syndrome. - Data Points Laboratory Results: Laboratory Results 02/05/18 08:30 02/05/18 08:30 02/05/18 02/05/18 02/05/18 08:45 08:32 08:30 WBC RBC Hgb Hct MCV MCH MCHC RDW Plt Count MPV Neut % (Auto) Lymph % (Auto) [place] % (Auto) Eos % (Auto) Baso % (Auto) Nucleat RBC Rel Count Absolute Neuts (auto) Absolute Lymphs (auto) Absolute Monos (auto) Absolute Eos (auto) Absolute Basos (auto) Absolute Nucleated RBC Immature Gran % Immature Gran # VBG Lactic Acid 1.4 mmol/L mmol/L (0.7-2.1) Sodium 141 mEq/L mEq/L (135-145) Potassium 5.2 mEq/L H mEq/L (3.3-5.0) Chloride 102 mEq/L mEq/L (97-110) Carbon Dioxide 26 mEq/l mEq/l (22-31) Anion Gap 13 mEq/L mEq/L (8-16) BUN 22 mg/dL mg/dL (7-23) Creatinine 1.0 mg/dL mg/dL (0.7-1.3) Estimated GFR > 60 Glucose 113 mg/dL H mg/dL (70-100) Calcium 8.6 mg/dL mg/dL (8.5-10.4) POC Troponin I 0.00 ng/mL ng/mL (0.00-0.08) NT-Pro-B Natriuret Pep 188 pg/mL H pg/mL (0-125) 02/05/18 08:30 WBC 12.78 10^3/uL H 10^3/uL (3.80-9.50) RBC 4.72 10^6/uL 10^6/uL (4.40-6.38) Hgb 14.7 g/dL g/dL (13.7-17.5) Hct 43.7 % % (40.0-51.0) MCV 92.6 fL fL (81.5-99.8) MCH 31.1 pg pg (27.9-34.1) MCHC 33.6 g/dL g/dL (32.4-36.7) RDW 12.8 % % (11.5-15.2) Plt Count 310 10^3/uL 10^3/uL (150-400) MPV 9.8 fL fL (8.7-11.7) Neut % (Auto) 71.2 % % (39.3-74.2) Lymph % (Auto) 13.7 % L % (15.0-45.0) [place] % (Auto) 8.7 % % (4.5-13.0) Eos % (Auto) 4.2 % % (0.6-7.6) Baso % (Auto) 0.7 % % (0.3-1.7) Nucleat RBC Rel Count 0.0 % % (0.0-0.2) Absolute Neuts (auto) 9.10 10^3/uL H 10^3/uL (1.70-6.50) Absolute Lymphs (auto) 1.75 10^3/uL 10^3/uL (1.00-3.00) Absolute Monos (auto) 1.11 10^3/uL H 10^3/uL (0.30-0.80) Absolute Eos (auto) 0.54 10^3/uL H 10^3/uL (0.03-0.40) Absolute Basos (auto) 0.09 10^3/uL 10^3/uL (0.02-0.10) Absolute Nucleated RBC 0.00 10^3/uL 10^3/uL (0-0.01) Immature Gran % 1.5 % H % (0.0-1.1) Immature Gran # 0.19 10^3/uL H 10^3/uL (0.00-0.10) VBG Lactic Acid Sodium Potassium Chloride Carbon Dioxide Anion Gap BUN Creatinine Estimated GFR Glucose Calcium POC Troponin I NT-Pro-B Natriuret Pep Medications Given: Diltiazem HCl (Cardizem Er Q24hr) 240 mg PO DAILY NIMESH Stop: 08/04/18 13:29 Last Admin: 02/05/18 13:57 Dose: 240 mg Doxycycline Hyclate (Doxycycline Hyclate) 100 mg PO BID NIMESH PRN Reason: Protocol Stop: 03/07/18 13:29 Last Admin: 02/05/18 13:58 Dose: 100 mg Levalbuterol (Xopenex 0.63mg Neb) 0.63 mg IH Q6HRS NIMESH Stop: 08/04/18 13:59 Last Admin: 02/05/18 14:05 Dose: 0.63 mg Miscellaneous Medication (Umeclidinium [place] [Incruse Ellipta]) 1 puffs IH DAILY NIMESH Stop: 08/04/18 13:29 Last Admin: 02/05/18 14:31 Dose: 1 puffs Pantoprazole Sodium (Protonix) 40 mg PO DAILY PRN PRN Reason: Heartburn Last Admin: 02/05/18 13:58 Dose: 40 mg Prednisone (Prednisone) 40 mg PO DAILY NIMESH Stop: 08/04/18 13:29 Last Admin: 02/05/18 13:57 Dose: 40 mg Discontinued Medications Albuterol/Ipratropium (Duoneb) 3 ml IH Q6 NIMESH Stop: 08/04/18 13:29 Last Admin: 02/05/18 14:07 Dose: Not Given Diltiazem HCl (Cardizem 25 Mg/5 Ml Vial) 10 mg IVP EDNOW ONE Stop: 02/05/18 08:36 Last Admin: 02/05/18 08:43 Dose: 10 mg Diltiazem HCl 125 mg/ Dextrose 125 mls @ 0 mls/hr IV EDNOW ONE; As Directed PRN Reason: Protocol Stop: 02/05/18 08:36 Last Admin: 02/05/18 09:29 Dose: 125 mls Sodium Chloride (Ns) 1,000 mls @ 0 mls/hr IV ONCE ONE; Wide Open PRN Reason: Protocol Stop: 02/05/18 08:36 Last Admin: 02/05/18 08:41 Dose: 1,000 mls Methylprednisolone Sodium Succinate (Solu-Medrol) 125 mg IVP EDNOW ONE Stop: 02/05/18 08:36 Last Admin: 02/05/18 08:40 Dose: 125 mg Point of Care Test Results: Chemistry 02/05/18 08:32 POC Troponin I 0.00 ng/mL ng/mL (0.00-0.08) Departure - Departure Disposition: [facility] Inpatient Acute Clinical Impression: Atrial flutter with rapid ventricular response, COPD with acute exacerbation Condition: Serious
[2018-02-05 08:49] LABS: PLATELET COUNT 310 10^3/uL (150-400)
--- NOTE | 2018-02-05 11:09 | SOAPPROG ---
[facility] Progress Note Assessment/Plan: Assessment: 62-year-old male with a cardiovascular history significant for paroxysmal atrial flutter with plans for an upcoming flutter ablation. Status post cardioversion approximately a month ago. Likely has been back in atrial flutter for at least 3 weeks. He presents with dyspnea and an exam that suggests an exacerbation of his underlying COPD. I think that his clinical presentation with dyspnea is unrelated to his underlying rapid atrial flutter which was noted at the time of arrival. Plan: 1. He will be admitted to telemetry. 2. I will defer to his primary team regarding management of his COPD exacerbation. 3. We will plan to restart his systemic anticoagulation and oral diltiazem. 4. We will wean his IV is all ties M as tolerated to maintain a resting heart rate below 110 beats per minute. 5. Further recommendations will be made pending his clinical course. 02/05/18 11:09 Subjective: 62-year-old male followed as an outpatient by Gennaro Manzanares with a history of atrial flutter status post cardioversion January 04. Apparently, he is scheduled for an ablation coming up in the next several weeks. He thinks that he was in sinus rhythm for 2 or 3 days after his cardioversion on January 04. Since then his heart rate has been elevated although he has felt relatively well. He comes to the emergency department with complaints of shortness of breath that has been occurring now for the last several days. With this he has had a slight nonproductive cough and audible wheezing. He has not had any anginal quality chest discomfort. On arrival to the ED he was in atrial fibrillation with a rapid ventricular response and hemodynamically stable. He states he has been trying to take his medications as well as he can. He does forget to take them periodically. He does not abuse alcohol. He is currently not a smoker. Objective: Vital Signs Temp Pulse Resp BP Pulse Ox 36.8 C 137 H 25 H 90/72 L 95 02/05/18 10:57 02/05/18 10:55 02/05/18 10:55 02/05/18 10:55 02/05/18 10:55 02/04/18 02/05/18 02/06/18 05:59 05:59 05:59 Intake Total 1000 Balance 1000 Physical Exam - Physical Exam General Appearance: WD/WN, alert, no apparent distress EENT: PERRL/EOMI, normal ENT inspection, pharynx normal, TMs normal Neck: non-tender, full range of motion, supple, normal inspection Respiratory: chest non-tender, wheezing (Diffuse bilateral) Cardiac/Chest: normal peripheral pulses, tachycardia, No gallop, No JVD Peripheral Pulses: 2+: carotid (R), carotid (L), femoral (R), femoral (L), dorsalis-pedis (R), dorsalis-pedis (L) Abdomen: normal bowel sounds, non-tender, soft Male Genitalia: deferred Rectal: deferred Back: Normal inspection Skin: normal color, warm/dry Lymphatic: no adenopathy Extremities: normal range of motion, non-tender, normal inspection, normal capillary refill Neuro/Psych: no motor/sensory deficits, alert, normal mood/affect, oriented x 3 ICD10 Worksheet Patient Problems: Problems Problem Status Onset Acute respiratory failure Acute COPD with acute exacerbation Acute Community acquired bacterial pneumonia Acute Supraventricular tachycardia Acute COPD exacerbation Acute Atrial flutter with rapid ventricular response Acute
[2018-02-05] MEDS ORDERED: PANTOPRAZOLE SODIUM 40 MG TAB PO PRN (13:17)
[2018-02-05] MEDS ORDERED: IPRATROPIUM/ALBUTEROL 3 ML DEYVIAL IH SCH (13:30)
[2018-02-05] MEDS: predniSONE 20 MG TAB PO SCH (13:57)
[2018-02-05] MEDS: DILTIAZEM CD 120 MG CAP PO SCH (13:57)
[2018-02-05] MEDS: DOXYCYCLINE HYCLATE 100 MG CAP/TAB PO SCH ×2 (13:58→20:11)
[2018-02-05] MEDS: LEVALBUTEROL 0.63 MG/3 ML DEYVIAL IH SCH ×3 (14:05→22:19)
--- NOTE | 2018-02-05 14:11 | GHP ---
[f rep st] HISTORY AND PHYSICAL DATE OF ADMISSION: 02/05/2018 HISTORY OF PRESENT ILLNESS: The patient is a 62-year-old gentleman with history of COPD and atrial f lutter, known to me from prior admission, who presents with palpitations. He was seen here in December d was cardioverted and subsequently discharged with a new diagnosis of A flutter. He is scheduled fo r an A flutter ablation in a couple days with Dr. Gennaro Manzanares. He notes increased shortness of breath over the last couple of days. He has had episodes of cough pr oductive of clear to white sputum as well as wheezing. He notes he takes prednisone intermittently. It sounds like he had a supply of prednisone. He takes 10 mg here, 20 mg there on a sort of p.r.n. nonphysician supervised means. He read up on prednisone. He demonstrates some apprehension about it s role. He has not had symptoms such as orthostasis or hypertension. No fever, chills. He denies swelling in his legs or orthopnea. REVIEW OF SYSTEMS: Complete 10-point review of systems was conducted and negative except as in the H PI. PAST MEDICAL HISTORY: Atrial flutter, oxygen-dependent COPD, hepatitis C, which is apparently cured, history of MRSA cellulitis, peripheral neuropathy. FAMILY HISTORY: Notable for type 2 diabetes in his mother. Stroke in his father and sister. He thaddeus t smoking in 2012. He does not use alcohol. ALLERGIES: No known drug allergies. HOME MEDICATIONS: Albuterol, apixaban, aspirin, diltiazem, Advair, DuoNeb, omeprazole, Umeclidinium bromide. PHYSICAL EXAMINATION: PRESENTING VITALS: Today temp 36.8. Blood pressure 102/76. Pulse 140, breat libby 20 times a minute. 96 on 3 L. GENERAL: No acute distress. HEENT: Sclerae anicteric. Orophar ynx clear. Mucous membranes moist. NECK: Supple without lymphadenopathy, JVD. LUNGS: Show decrea sed air movement. Scattered wheezes bilaterally. Increased work of breathing. HEART: S1, S2. Rat e is tachycardic. ABDOMEN: Soft, nontender, nondistended. LOWER EXTREMITIES: Without edema. Calv es nontender. SKIN: Without rash. NEUROLOGIC: Nonfocal. LABORATORY DATA: White count 12.8, hematocrit is 43, platelets are 310,000. Venous lactate is 1.4. Sodium 141, potassium 5.2, chloride 102, bicarb 26, BUN 22, creatinine 1.0, glucose 113. He had a p otassium 5.3 a month ago. BNP is 188, which is about where he lives. Troponin 0.0. Chest x-ray interpreted by me shows airways disease. EKG interpreted by me shows atrial flutter. I discussed the case with Dr. Placido Hall. ASSESSMENT/PLAN: 62-year-old gentleman with oxygen-dependent chronic obstructive pulmonary disease w ho presents with apparent chronic obstructive pulmonary disease exacerbation as well as rapid atrial flutter. 1. Atrial flutter. He is on a diltiazem drip. Will continue this. Restarted oral diltiazem and we aned his diltiazem drip to off. He is therapeutically anticoagulated. He has been seen by Dr. Hall , who concurs with this plan. It is actually his plan. 2. Chronic obstructive pulmonary disease. I believe the patient is having an acute exacerbation. I will give him 40 of prednisone as well as doxycycline and also write him for some Xopenex nebulizers . I will continue his outpatient medicines, but I will hold his albuterol. 3. Steroid use. I think this is potentially problematic for him. I will write him for a slow taper , and we had a significant discussion regarding that steroid administration should be done under the direction of a physician. He does not appear cushingoid. 4. Prophylaxis. Therapeutically anticoagulated. DISPOSITION: Inpatient status. /[id number]/MODL
[2018-02-05] MEDS: UMECLIDINIUM BROMIDE IH SCH (14:31)
--- NOTE | 2018-02-05 14:32 | PDMN ---
Medical Necessity Medical necessity: C/M review: est. > 2 MN for eval and TX of acute rapid atrial flutter, acute COPD exacerbation, palpitations, requiring IV Diltiazem infusion in ED , weaned to off, Cardiology consult, ongoing oral Cardizem, oral prednisone, oral doxycycline, cardiac monitoring, pulse oximetry, supplemental O2, comorbid history of O2 dependent COPD, atrial flutter, hepatitis C which is apparently cured, MRSA cellulitis, peripheral neuropathy, December 2017 hospitalization for new diagnosis of atrial flutter treated with cardioversion, patient is scheduled for atrial flutter ablation in a couple of days with Dr. Gennaro Manzanares per H/P.
[2018-02-05] MEDS: APIXABAN 5 MG TAB PO SCH (20:11)
[2018-02-05] MEDS: FLUTICASONE/SALMETER 500/50MCG DISKUS IH SCH (22:20)
[2018-02-06] MEDS ORDERED: ACETAMINOPHEN 500 MG TAB PO PRN (03:33)
[2018-02-06] MEDS: LEVALBUTEROL 0.63 MG/3 ML DEYVIAL IH SCH ×5 (06:07→22:14)
[2018-02-06] MEDS: DOXYCYCLINE HYCLATE 100 MG CAP/TAB PO SCH ×2 (08:26→19:55)
[2018-02-06] MEDS: ASPIRIN 81 MG CHEWABLE TAB PO SCH (08:26)
[2018-02-06] MEDS: APIXABAN 5 MG TAB PO SCH ×2 (08:26→19:56)
[2018-02-06] MEDS: DILTIAZEM CD 120 MG CAP PO SCH (08:27)
[2018-02-06] MEDS: predniSONE 20 MG TAB PO SCH (08:27)
[2018-02-06] MEDS: UMECLIDINIUM BROMIDE IH SCH (08:31)
[2018-02-06] MEDS: FLUTICASONE/SALMETER 500/50MCG DISKUS IH SCH (08:31)
[2018-02-06] MEDS ORDERED: Herbals/Supplements -Info Only PO SCH (09:00)
--- NOTE | 2018-02-06 09:15 | PDCARPN ---
Cardiology Progress Note Chief Complaint: a.flutter Assessment/Plan: Assessment: The patient is a 62 y/o M with a history of COPD and atrial flutter admitted with a COPD exacerbation. He was diagnosed with a. flutter a few weeks ago and is s/p CV. He did well for a few days and was actually able to get off of O2. A few days later he converted back into a.flutter. He is scheduled for a ablation with Dr. Manzanares on 02/09. His rates are well controlled on PO dilt. His only complaint is a cough. Plan: 1. Atrial flutter- rate controlled on Dilt. Continue Eliquis for CVA prophylaxis. He has noted his SOB improves when maintaining NSR. He is scheduled for a ablation on . This may need to be moved back a week. Will reassess tomorrow. 2. COPD exacerbation- per IM 02/06/18 11:42 Subjective: He is complaining of a cough and SOB. Objective: Vital Signs (8 Hrs) Temp Pulse Resp BP Pulse Ox 02/06/18 08:25 77 106/58 L 02/06/18 07:38 37.1 C 73 18 94/63 L 95 02/06/18 06:09 82 20 02/06/18 03:49 36.6 C 80 17 102/75 96 Intake/Output (24 Hrs) 02/05/18 02/06/18 02/07/18 05:59 05:59 05:59 Intake Total 3341.7 Output Total 1000 400 Balance 2341.7 -400 Intake: Oral (ml) 1200 IV Infused (ml) 2141.7 Diltiazem 125 mg In D5w 141.7 125 ml @ As Directed IV EDNOW ONE Rx#:[id number] Ns 1,000 ml @ Wide Open 1000 IV ONCE ONE Rx#: [id number] Output: Urine (ml) 1000 400 Urinal 1000 400 Other: Weight 104.326 kg Number of Voids Urinal 2 Number of Stools Urinal 0 Result Diagrams: 02/05/18 08:30 02/05/18 08:30 Telemetry: a.flutter rate controlled. - Physical Exam Constitutional: WDWN Cardiovascular: no murmurs, irregularly irregular Peripheral Pulses: 2+: dorsalis-pedis (R), dorsalis-pedis (L) Respiratory: expiratory wheeze Skin: no edema Neurologic: AAOx3 ICD10 Worksheet Patient Problems: Problems Problem Status Onset Atrial flutter with rapid ventricular response Acute COPD with acute exacerbation Acute Acute respiratory failure Acute COPD exacerbation Acute Community acquired bacterial pneumonia Acute Supraventricular tachycardia Acute
--- NOTE | 2018-02-06 12:23 | ASMTCMCOM ---
CM Note CM Note Notes: 02/06/2018 Case Management Note Met pt during rounds this morning. Pt admitted for COPD exacerbation, Afib with RVR. Pt lives with his father Al [phone]. His sister Patricia is supportive and can be reached at [phone]. Pt reports he spent rehab time in [facility] approximately 3 years ago. He has used [facility] as a home care in the past as well. Provided [employer] phone number at pt request. Pt reports home oxygen equipment is not working properly. There are no PT or OT evals ordered at this time. Pt is ambulating without difficulty. Pt is retired. Pt reports no difficulty driving or preparing meals. Case Management d/c poc: home independent with follow up as directed. Case Mangement to follow. Date Signed: 02/06/2018 12:23 PM Electronically Signed By:Jamilah Callejas RN
[2018-02-06] MEDS ORDERED: FUROSEMIDE 40 MG/4 ML VIAL IVP ONE (15:24)
--- NOTE | 2018-02-06 15:27 | HOSPPROG ---
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 tele: af in 80-100's (interp by me) Objective: Vital Signs Temp Pulse Resp BP Pulse Ox 36.9 C 20 L 14 108/68 91 L 02/06/18 10:54 02/06/18 10:54 02/06/18 10:54 02/06/18 10:54 02/06/18 10:54 Microbiology 02/05/18 09:40 Respiratory Panel (PCR) - Final Nasal, Sinus - Swab No Organism Detected 02/05/18 02/06/18 02/07/18 05:59 05:59 05:59 Intake Total 3341.7 Output Total 1000 400 Balance 2341.7 -400 - Physical Exam Constitutional: no apparent distress, appears nourished Eyes: PERRL, anicteric sclera Ears, Nose, Mouth, Throat: moist mucous membranes, hearing normal Cardiovascular: tachycardia, No systolic murmur Respiratory: other (scattered wheezes, decreased air movement w prolonged exp phase) Gastrointestinal: normoactive bowel sounds, soft, non-tender abdomen Genitourinary: no bladder fullness, No abbott in urethra Skin: warm, normal color Musculoskeletal: full muscle strength Neurologic: AAOx3 ICD10 Worksheet Patient Problems: Problems Problem Status Onset Atrial flutter with rapid ventricular response Acute COPD with acute exacerbation Acute Acute respiratory failure Acute COPD exacerbation Acute Community acquired bacterial pneumonia Acute Supraventricular tachycardia Acute
[2018-02-06] MEDS ORDERED: ONDANSETRON 4 MG/2 ML VIAL IVP PRN (22:22)
[2018-02-06] MEDS ORDERED: ZOLPIDEM TARTRATE 5 MG TAB PO PRN (22:23)
[2018-02-07] MEDS: FLUTICASONE/SALMETER 500/50MCG DISKUS IH SCH (00:23)
[2018-02-07] MEDS ORDERED: LEVALBUTEROL 0.63 MG/3 ML DEYVIAL IH SCH (06:00)
[2018-02-07] MEDS ORDERED: methylPREDNISolone SOD SUCC 125 MG/2 ML VIAL ONE ×2 (11:18→18:08)
[2018-02-07] MEDS ORDERED: IPRATROPIUM BROMIDE 0.5 MG/2.5 ML DEYVIAL ONE ×2 (16:03→21:03)
[2018-02-07] MEDS ORDERED: LEVALBUTEROL 0.63 MG/3 ML DEYVIAL ONE ×2 (16:04→20:56)
[2018-02-07] MEDS ORDERED: ENOXAPARIN 100 MG/ML SYR SC SCH (21:00)
--- NOTE | 2018-02-07 22:31 | GPROG ---
[f rep st] PROGRESS NOTE SUBJECTIVE: The patient is quite anxious this morning. He complains of worsening shortness of breat h and wheezing. He continues to cough. He denies orthopnea, chest pain, or shortness of breath. He denies lower extremity edema. He does not think his symptoms improved after receiving Lasix yesterd ay. He is afebrile. OBJECTIVE: VITAL SIGNS: Stable. GENERAL: The patient is awake, alert, oriented, in no acute distre ss, although he is quite anxious. HEENT: Head is atraumatic, normocephalic. Pupils round, react to light. Extraocular movements intact. Oropharynx was clear. Mucous membranes were moist. NECK: Sup ple. There is no JVD. HEART: An irregularly irregular rhythm with a rate in the 130s. LUNGS: Rev eal decreased air exchange with diffuse expiratory wheezes. ABDOMEN: Soft, nondistended, nontender. Normoactive bowel sounds. EXTREMITIES: Without cyanosis, clubbing, or edema. NEUROLOGIC: Grossly nonfocal. ASSESSMENT AND PLAN: The patient is a 62-year-old male admitted with acute hypoxemic respiratory maura lure and chronic obstructive pulmonary disease exacerbation. 1. Acute hypoxemic respiratory failure secondary to chronic obstructive pulmonary disease exacerbati on. Will continue his scheduled Xopenex, but add ipratropium to this. Also increase Xopenex to q.2 hours p.r.n. I will change him to intravenous Solu-Medrol 60 mg q.6 hours given his worsening status today. Continue doxycycline. He is on 2-3 L of oxygen per minute, which actually is his baseline. 2. Atrial flutter. He has poor rate control, though he did convert to a normal sinus rhythm several hours after receiving 240 mg of p.o. diltiazem today. Therefore, plans for cardioversion were abort ed. He may still undergo ablation later this week if his respiratory status is improved. DISPOSITION: Continue inpatient. /[id number]/MODL
[2018-02-08] MEDS: IPRATROPIUM BROMIDE 0.5 MG/2.5 ML DEYVIAL IH SCH ×6 (05:13→20:12)
[2018-02-08] MEDS: LEVALBUTEROL 0.63 MG/3 ML DEYVIAL IH SCH ×6 (05:14→20:12)
[2018-02-08] MEDS: methylPREDNISolone SOD SUCC 125 MG/2 ML VIAL IVP SCH ×5 (05:15→23:05)
[2018-02-08] MEDS: DILTIAZEM CD 120 MG CAP PO SCH ×2 (05:16→08:48)
[2018-02-08] MEDS: ASPIRIN 81 MG CHEWABLE TAB PO SCH ×2 (05:16→08:48)
[2018-02-08] MEDS: DOXYCYCLINE HYCLATE 100 MG CAP/TAB PO SCH ×3 (05:16→21:02)
[2018-02-08] MEDS: predniSONE 20 MG TAB PO SCH (05:17)
[2018-02-08] MEDS: UMECLIDINIUM BROMIDE IH SCH ×2 (05:17→08:21)
[2018-02-08] MEDS: APIXABAN 5 MG TAB PO SCH (05:17)
[2018-02-08] MEDS: ENOXAPARIN 100 MG/ML SYR SC SCH ×3 (05:17→21:03)
[2018-02-08] MEDS: FLUTICASONE/SALMETER 500/50MCG DISKUS IH SCH ×3 (05:17→20:12)
--- NOTE | 2018-02-08 06:56 | CPEKG ---
Heart Rate: 79 RR Interval: 759 QRSD Interval: 104 QT Interval: 364 QTC Interval: 418 QRS Biddle: 74 T Wave Biddle: 67 EKG Severity - ABNORMAL ECG - EKG Impression: SINUS RHYTHM HAS REPLACED ATRIAL FLUTTER NOTED ON PRIOR ECG EKG Impression: BORDERLINE INFERIOR Q WAVES EKG Impression: CONSIDER ANTERIOR INFARCT Electronically Signed By: Gino Crawford 08-Feb-2018 20:51:00
--- NOTE | 2018-02-08 11:03 | PDCARPN ---
Cardiology Progress Note Chief Complaint: SOB Assessment/Plan: Assessment: The patient is a 62 y/o M with a history of COPD and atrial flutter admitted with a COPD exacerbation. He was diagnosed with a. flutter a few weeks ago and is s/p CV. He did well for a few days and was actually able to get off of O2. A few days later he converted back into a.flutter. He is scheduled for a ablation with Dr. Manzanares on 02/09. His rates are well controlled on PO dilt. His only complaint is a cough. Plan: 1. Atrial flutter- currently in NSR. He is symptomatic when is a.flutter complaining of SOB. Plan for ablation with Dr. Manzanares tomorrow morning. NPO after midnight. Eliquis is on hold but he is getting Lovenox with last dose this evening. Ok to ambulate in halls. 2. COPD exacerbation- per IM. Improving. 02/08/18 10:59 02/08/18 11:03 Subjective: He is complaining of SOB which is worse when in atrial flutter. He denies any CP or lightheadedness. Objective: Vital Signs (8 Hrs) Temp Pulse Resp BP Pulse Ox 02/08/18 08:33 79 21 H 92 02/08/18 08:00 36.8 C 80 28 H 135/87 H 92 02/08/18 05:16 120 H 24 H 02/08/18 04:00 36.8 C 76 20 135/87 H 96 Intake/Output (24 Hrs) 02/07/18 02/08/18 02/09/18 05:59 05:59 05:59 Intake Total 350 550 Output Total 1700 200 Balance -1350 350 Intake: Oral (ml) 350 550 Output: Urine (ml) 1700 200 Urinal 1700 200 Other: Weight 102.8 kg Result Diagrams: 02/08/18 03:44 02/08/18 03:44 Telemetry: NSR - Physical Exam Constitutional: no apparent distress Cardiovascular: regular rate and rhythm, no murmurs, no rubs, no gallops Respiratory: clear to auscultate bilat, reduced air movement Skin: no edema Neurologic: AAOx3 ICD10 Worksheet Patient Problems: Problems Problem Status Onset Atrial flutter with rapid ventricular response Acute COPD with acute exacerbation Acute Acute respiratory failure Acute COPD exacerbation Acute Community acquired bacterial pneumonia Acute Supraventricular tachycardia Acute
--- NOTE | 2018-02-08 14:58 | HOSPPROG ---
[facility] Patient Name: ELINA MARSH Rpt#: [id number] Unit Number: [id number] Attending/ER Physician: Miquel Pool MD Patient Type: ADM IN Adm Date/Source: 02/05/18 EMR Discharge Date: Primary Carrier: MEDICARE INPATIENT Documented by: May Tran DO on Date/Time:02/07/18 0925 HOSPITALIST PROGRESS NOTE Hospitalist Progress Note Assessment/Plan: 61 yo male admitted with a flutter, copd exacerbation, cough aflutter: rate was improved with po dilt, now back into 130's, pt quite anxious ablation scheduled for , but will likely undergo cardioversion today per cards [facility]/ copd: more SOB today with wheezing on exam, 2-3 LPM. Uses high dose prednisone at home relatively frequently. RVP neg add ipratropium to xopenex scheduled QID prn xopenex q2h change to IV solumedrol 60 q6h for now cont doxy repeat CXR this am wean O2 as able intermittent pred use: will need slow taper over several weeks dispo: cont inpt Subjective: Pt feels anxious, more SOB today. Coughing, wheezing. No CP. No fevers. Objective: Vital Signs Temp Pulse Resp BP Pulse Ox 36.6 C 101 H 18 109/87 H 94 02/07/18 08:21 02/07/18 08:21 02/07/18 08:21 02/07/18 08:21 02/07/18 08:21 02/06/18 02/07/18 02/08/18 05:59 05:59 05:59 Intake Total 3341.7 350 Output Total 1000 1700 Balance 2341.7 -1350 - Physical Exam Constitutional: no apparent distress Eyes: PERRL Ears, Nose, Mouth, Throat: moist mucous membranes Cardiovascular: irregularly irregular Respiratory: no respiratory distress, reduced air movement, expiratory wheeze Gastrointestinal: normoactive bowel sounds, soft, non-tender abdomen Skin: warm Musculoskeletal: full muscle strength Neurologic: AAOx3 Psychiatric: interacting appropriately, anxious ICD10 Worksheet Patient Problems: Problems Problem Status Onset Atrial flutter with rapid ventricular response Acute COPD with acute exacerbation Acute Acute respiratory failure Acute COPD exacerbation Acute Community acquired bacterial pneumonia Acute Supraventricular tachycardia Acute *This report may have been compiled using a voice recognition system, and might contain typographical errors and blanks.* May Tran DO 02/07/1845 <Electronically signed by May Tran DO> 4 T: ROSA 02/07/18924 CC:
--- NOTE | 2018-02-08 19:25 | HOSPPROG ---
Hospitalist Progress Note Assessment/Plan: 61 yo m w aflutter, copd exacerbation, cough a flutter: improved control on po dilt ablation scheduled for tomorrow, npo at midnight eliquis on hold, lovenox per cards Acute on chronic hypoxemic respiratory failure 2/2 COPD exacerbation continue xopenex/ipratropium QID plus q2h xopenex prn changed to IV solumedrol due to worsening symptoms, will begin to wean tomorrow cont doxy for 5 day course intermittent prednisone use: planning slow taper over a few weeks dvt pplx - lovenox dispo: cont inpt, ADD uncertain Subjective: Pt feels a little better, still a bit short of breath with wheezing. No fevers. cough persists. Gets symptomatic with rapid heart rate. Objective: Vital Signs Temp Pulse Resp BP Pulse Ox 36.9 C 84 20 128/84 H 94 02/08/18 15:28 02/08/18 15:28 02/08/18 15:38 02/08/18 15:28 02/08/18 15:38 Laboratory Results 02/08/18 03:44 02/08/18 03:44 02/07/18 02/08/18 02/09/18 05:59 05:59 05:59 Intake Total 187 429 7978 Output Total 1700 200 Balance -9188 913 2353 - Physical Exam Constitutional: no apparent distress Eyes: PERRL Ears, Nose, Mouth, Throat: moist mucous membranes Cardiovascular: irregularly irregular Respiratory: no respiratory distress, reduced air movement, expiratory wheeze Gastrointestinal: normoactive bowel sounds, soft, non-tender abdomen Skin: warm Musculoskeletal: full muscle strength Neurologic: AAOx3 Psychiatric: interacting appropriately ICD10 Worksheet Patient Problems: Problems Problem Status Onset Atrial flutter with rapid ventricular response Acute COPD with acute exacerbation Acute Acute respiratory failure Acute COPD exacerbation Acute Community acquired bacterial pneumonia Acute Supraventricular tachycardia Acute
[2018-02-08] MEDS ORDERED: BISACODYL 10 MG SUPP PR PRN (21:08)
[2018-02-08] MEDS ORDERED: POLYETHYLENE GLYCOL 3350 17 GM PKT PO PRN (21:08)
[2018-02-08] MEDS ORDERED: MAGNESIUM HYDROXIDE 30 ML UDCUP PO PRN (21:08)
[2018-02-08] MEDS ORDERED: LACTULOSE 20 GM/30 ML UDCUP PO PRN (21:08)
[2018-02-08] MEDS: SENNOSIDES/DOCUSATE SODIUM TAB PO SCH (21:34)
[2018-02-09] MEDS: LEVALBUTEROL 0.63 MG/3 ML DEYVIAL IH PRN ×3 (02:38→13:16)
[2018-02-09 04:32] LABS: PLATELET COUNT 255 10^3/uL (150-400)
[2018-02-09 04:37] LABS: INR 1.11 (0.83-1.16); PROTIME(PATIENT) 14.5 SEC (12.0-15.0)
[2018-02-09] MEDS: LEVALBUTEROL 0.63 MG/3 ML DEYVIAL IH SCH ×4 (06:09→21:03)
[2018-02-09] MEDS: IPRATROPIUM BROMIDE 0.5 MG/2.5 ML DEYVIAL IH SCH ×3 (06:09→15:50)
[2018-02-09] MEDS: methylPREDNISolone SOD SUCC 125 MG/2 ML VIAL IVP SCH (06:21)
[2018-02-09] MEDS: DOXYCYCLINE HYCLATE 100 MG CAP/TAB PO SCH (09:59)
[2018-02-09] MEDS: SENNOSIDES/DOCUSATE SODIUM TAB PO SCH ×2 (09:59→20:58)
[2018-02-09] MEDS: ASPIRIN 81 MG CHEWABLE TAB PO SCH (09:59)
[2018-02-09] MEDS: DILTIAZEM CD 120 MG CAP PO SCH (10:00)
[2018-02-09] MEDS: FLUTICASONE/SALMETER 500/50MCG DISKUS IH SCH ×2 (10:23→21:04)
[2018-02-09] MEDS: UMECLIDINIUM BROMIDE IH SCH (10:24)
[2018-02-09] MEDS ORDERED: ENOXAPARIN 40 MG/0.4 ML SYR SC SCH (11:45)
[2018-02-09] MEDS ORDERED: ENOXAPARIN 100 MG/ML SYR SC SCH (12:00)
[2018-02-09] MEDS: morphINE 10 MG/0.5 ML UDSYR PO PRN ×2 (12:55→17:00)
[2018-02-09] MEDS: AZITHROMYCIN 250 MG TAB PO SCH (12:56)
--- NOTE | 2018-02-09 13:44 | PDCARPN ---
Cardiology Progress Note Chief Complaint: SOB Assessment/Plan: Assessment: The patient is a 62 y/o M with a history of COPD and atrial flutter admitted with a COPD exacerbation. He was diagnosed with a. flutter a few weeks ago and is s/p CV. He did well for a few days and was actually able to get off of O2. A few days later he converted back into a.flutter. He is currently in NSR. His respiratory status has become worse. Plan: 1. Atrial flutter- currently in NSR. He is symptomatic when in a.flutter complaining of SOB. His respiratory status has worsened and therefore his ablation will be postponed for a few weeks. Continue Dilt for rate control. Will D/C Lovenox and resume Eliquis this evening. 2. COPD exacerbation- per IM. We will sign off. 02/09/18 13:57 Subjective: He is complaining of SOB. He denies any palpitations or CP. Objective: Vital Signs (8 Hrs) Temp Pulse Resp BP Pulse Ox 02/09/18 11:16 36.9 C 82 16 153/85 H 91 L 02/09/18 08:59 87 22 H 155/90 H 87 L 02/09/18 07:40 36.6 C 78 12 118/65 94 Intake/Output (24 Hrs) 02/08/18 02/09/18 02/10/18 05:59 05:59 05:59 Intake Total 550 1400 Output Total 200 300 Balance 350 1100 Intake: Oral (ml) 550 1400 Output: Urine (ml) 200 300 Urinal 200 300 Other: Weight 103.4 kg Intake Quantity Yes Sufficient Number of Stools Urinal 0 Result Diagrams: 02/09/18 03:43 02/09/18 03:43 Telemetry: NSR - Physical Exam Constitutional: no apparent distress Cardiovascular: regular rate and rhythm Respiratory: expiratory wheeze Skin: no edema Neurologic: AAOx3 ICD10 Worksheet Patient Problems: Problems Problem Status Onset Atrial flutter with rapid ventricular response Acute COPD with acute exacerbation Acute Acute respiratory failure Acute COPD exacerbation Acute Community acquired bacterial pneumonia Acute Supraventricular tachycardia Acute
--- NOTE | 2018-02-09 13:54 | ASMTCMCOM ---
CM Note CM Note Notes: Pts case discussed in morning rounds. Pts ablation has been rescheduled. Therapies have been ordered and awaiting recommendations. Needs are TBD at this time. Pt has frustrations and anxiety around not being able to breathe. Sandra Dos Santos has been consulted. CM to follow. Plan: TBD Date Signed: 02/09/2018 01:54 PM Electronically Signed By:CAROLEE Mendoza
--- NOTE | 2018-02-09 16:20 | HOSPPROG ---
Hospitalist Progress Note Assessment/Plan: 61 yo m w aflutter, copd exacerbation, cough a flutter: improved rate control on po dilt ablation canceled today due to respiratory status resume lovenox 100 mg/kg bid for now Acute on chronic hypoxemic respiratory failure 2/2 COPD exacerbation - significant air hunger symptoms continue xopenex/ipratropium QID plus q2h xopenex prn agreed to pt's wish to return to oral prednisone from IV solumedrol, 60 mg bid agreed to change from doxy to azithromycin per pt wish trial low dose roxanol for air hunger consider pulm consult tomorrow, followed by Dr. Walker, outpt clinic notes reviewed intermittent prednisone use: planning slow taper over a few weeks dvt pplx - lovenox dispo: cont inpt, ADD uncertain Subjective: Pt is very anxious. "I can't breathe". He appears near his baseline, same O2 requirement. His expectation is for his breathing to get better and he feels it isn't improving. No fevers/chills. No CP, but some SOB. Objective: Vital Signs Temp Pulse Resp BP Pulse Ox 36.6 C 81 18 131/76 H 95 02/09/18 15:06 02/09/18 15:06 02/09/18 15:06 02/09/18 15:06 02/09/18 15:06 Laboratory Results 02/09/18 03:43 02/09/18 03:43 02/08/18 02/09/18 02/10/18 05:59 05:59 05:59 Intake Total 550 1400 Output Total 200 300 Balance 350 1100 PT 14.5 SEC (12.0-15.0) 02/09/18 03:43 INR 1.11 (0.83-1.16) 02/09/18 03:43 - Physical Exam Constitutional: no apparent distress Eyes: PERRL Ears, Nose, Mouth, Throat: moist mucous membranes Cardiovascular: irregularly irregular Respiratory: no respiratory distress, reduced air movement, expiratory wheeze Gastrointestinal: normoactive bowel sounds, soft, non-tender abdomen Skin: warm Musculoskeletal: full muscle strength Neurologic: AAOx3 Psychiatric: interacting appropriately, anxious ICD10 Worksheet Patient Problems: Problems Problem Status Onset Atrial flutter with rapid ventricular response Acute COPD with acute exacerbation Acute Acute respiratory failure Acute COPD exacerbation Acute Community acquired bacterial pneumonia Acute Supraventricular tachycardia Acute
[2018-02-09] MEDS: predniSONE 20 MG TAB PO SCH (17:00)
[2018-02-09] MEDS ORDERED: APIXABAN 5 MG TAB PO SCH (22:00)
[2018-02-09] MEDS: APIXABAN 5 MG TAB PO SCH (23:09)
[2018-02-10] MEDS: LEVALBUTEROL 0.63 MG/3 ML DEYVIAL IH PRN (03:49)
[2018-02-10] MEDS: LEVALBUTEROL 0.63 MG/3 ML DEYVIAL IH SCH ×4 (06:06→21:06)
[2018-02-10] MEDS: predniSONE 20 MG TAB PO SCH ×2 (08:01→17:56)
[2018-02-10] MEDS: SENNOSIDES/DOCUSATE SODIUM TAB PO SCH ×2 (08:01→19:42)
[2018-02-10] MEDS: AZITHROMYCIN 250 MG TAB PO SCH (08:01)
[2018-02-10] MEDS: ASPIRIN 81 MG CHEWABLE TAB PO SCH (08:02)
[2018-02-10] MEDS: DILTIAZEM CD 120 MG CAP PO SCH (08:02)
[2018-02-10] MEDS: APIXABAN 5 MG TAB PO SCH ×2 (08:02→19:43)
[2018-02-10] MEDS: UMECLIDINIUM BROMIDE IH SCH (10:15)
[2018-02-10] MEDS: FLUTICASONE/SALMETER 500/50MCG DISKUS IH SCH ×2 (10:15→21:06)
[2018-02-10] MEDS: morphINE 10 MG/0.5 ML UDSYR PO PRN ×2 (11:05→16:33)
--- NOTE | 2018-02-10 15:11 | ASMTCMCOM ---
CM Note CM Note Notes: Pts case discussed in morning rounds. PT is recommending home independent. OT is recommending HC. CM met w/ pt for dispo planning. Pt is less anxious today. Pt reports that he is able to breathe better today. Pt reports that he is not interested in having HC at this time. CM informed pt that if he changes his mind he can contact his PCP office to order HC. CM available for changes. Plan: Independent Date Signed: 02/10/2018 03:10 PM Electronically Signed By:CAROLEE Mendoza
--- NOTE | 2018-02-10 19:47 | HOSPPROG ---
Hospitalist Progress Note Assessment/Plan: 61 yo m w aflutter, copd exacerbation, cough a flutter: improved rate control on po dilt ablation canceled due to respiratory status cont lovenox 100 mg/kg bid for now, likely transition back to eliquis soon given NSR status Acute on chronic hypoxemic respiratory failure 2/2 COPD exacerbation - significant air hunger symptoms continue xopenex/ipratropium QID plus q2h xopenex prn cont prednisone, begin to wean pt wished to changed from doxy to azithro, will complete 1.5 g course trial low dose roxanol for air hunger, seems to be helping followed by Dr. Walker, outpt clinic notes reviewed intermittent prednisone use: planning slow taper over a few weeks dvt pplx - lovenox dispo: cont inpt, ADD uncertain, possibly 1-2 days, PT/OT evals Subjective: Pt feels a little better today, not as much air hunger and roxanol helps to reduce anxiety. No CP or SOB. No fevers, cough better. Objective: Vital Signs Temp Pulse Resp BP Pulse Ox 36.7 C 72 28 H 137/75 H 91 L 02/10/18 15:49 02/10/18 16:05 02/10/18 16:05 02/10/18 15:49 02/10/18 16:05 Laboratory Results 02/09/18 03:43 02/09/18 03:43 02/09/18 02/10/18 02/11/18 05:59 05:59 05:59 Intake Total 9269 836 8214 Output Total 300 1000 Balance 1100 -400 1840 PT 14.5 SEC (12.0-15.0) 02/09/18 03:43 INR 1.11 (0.83-1.16) 02/09/18 03:43 - Physical Exam Constitutional: no apparent distress Eyes: PERRL Ears, Nose, Mouth, Throat: moist mucous membranes Cardiovascular: regular rate and rhythym Respiratory: no respiratory distress, reduced air movement, expiratory wheeze Gastrointestinal: normoactive bowel sounds, soft, non-tender abdomen Skin: warm Musculoskeletal: full muscle strength Neurologic: AAOx3 Psychiatric: interacting appropriately ICD10 Worksheet Patient Problems: Problems Problem Status Onset Atrial flutter with rapid ventricular response Acute COPD with acute exacerbation Acute Acute respiratory failure Acute COPD exacerbation Acute Community acquired bacterial pneumonia Acute Supraventricular tachycardia Acute
[2018-02-11] MEDS: morphINE 10 MG/0.5 ML UDSYR PO PRN ×2 (01:40→09:41)
[2018-02-11] MEDS: LEVALBUTEROL 0.63 MG/3 ML DEYVIAL IH SCH ×2 (06:05→09:25)
[2018-02-11] MEDS: FLUTICASONE/SALMETER 500/50MCG DISKUS IH SCH (06:06)
[2018-02-11] MEDS: UMECLIDINIUM BROMIDE IH SCH (06:08)
[2018-02-11 08:53] VITALS: BP 136/70
[2018-02-11] MEDS ORDERED: predniSONE 20 MG TAB PO SCH (09:00)
[2018-02-11] MEDS: APIXABAN 5 MG TAB PO SCH (09:40)
[2018-02-11] MEDS: DILTIAZEM CD 120 MG CAP PO SCH (09:41)
[2018-02-11] MEDS: AZITHROMYCIN 250 MG TAB PO SCH (09:41)
[2018-02-11] MEDS: ASPIRIN 81 MG CHEWABLE TAB PO SCH (09:42)
[2018-02-11] MEDS: SENNOSIDES/DOCUSATE SODIUM TAB PO SCH (09:42)
--- NOTE | 2018-02-11 09:53 | GDS ---
[f rep st] DISCHARGE SUMMARY DISCHARGE DIAGNOSES: 1. Acute on chronic hypoxemic respiratory failure secondary to chronic obstructive pulmonary disease exacerbation. 2. Atrial flutter. 3. Chronic intermittent prednisone use. CONSULTANTS: SHANTE Urbina, [facility]. HISTORY: For details, please see history and physical dated February 05, 2018. In brief, the patient is a 62-year-old male with oxygen-dependent COPD and atrial flutter, who presented to the emergency dep artment with heart palpitations and shortness of breath. He was admitted to the hospital for further management. HOSPITAL COURSE: The patient was admitted to the cardiac telemetry unit. He was started on a diltia zem drip for rate control of his atrial flutter. This was transitioned to oral diltiazem, and his ou tpatient dose was up titrated to 240 mg daily. Consideration was given to cardioversion; however, th e patient converted to sinus rhythm. He had a plan for an ablation, though given his acute decompens ated respiratory status, this was deferred and will revisit this 2-[address] once his res piratory status has returned to baseline. Regarding his COPD, he required high-dose IV Solu-Medrol, frequent nebulizers. He also received a co urse of antibiotics, doxycycline, followed by azithromycin. The latter was added at his request. He completed 1.5 mg of azithromycin, which may have had some beneficial anti-inflammatory effect. The plan is for him to complete a long steroid taper over several weeks. He will decrease by 10 mg every 3 days and is discharging on 30 mg daily. 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 Anxiety was a significant issue during his hospitalization, and he suffered from severe air hunger. He was started on low-dose Roxanol, and this provided significant benefit. He will discharge home on the same low dose for air hunger. DISPOSITION: Patient is discharged home in stable condition. He has declined home health services. DISCHARGE MEDICATIONS: Please see [facility] for completed outpatient medication list. 1. New medications on discharge include prednisone 20 mg tablets. Instructions are written as 60 mg p.o. daily for 3 days, then 50 mg p.o. daily for 3 days, then 40 mg p.o. daily for 3 days, then 30 m g p.o. daily for 3 days, then 20 mg p.o. daily for 3 days, and then 10 mg p.o. daily for 3 days. He should follow up with Pulmonology to determine if he needs ongoing chronic low-dose steroid use. 2. Roxanol 5 mg p.o. q.4 hours p.r.n. He will continue all other outpatient medications as previously prescribed, including Eliquis, albute rol, Advair, aspirin, Incruse Ellipta, omeprazole, p.r.n. DuoNeb, and diltiazem. FOLLOWUP: 1. Dr. Manzanares, cardiology, in [address] Jose Guadalupe Walker or Dr. Jose Guadalupe Peres, pulmonology, in 1-2 weeks. 3. Ange Augustin, primary care. /[id number]/MODL
== END 2018-02-11 12:03 | disposition home or self-care (01) | DRG 190 ==
LOC: F2W 10:43
PROVIDERS: ADMIT Internal Medicine; ATTEND Internal Medicine
DX: J44.1 Chronic obstructive pulmonary disease with (acute) exacerbation (principal); J96.21 Acute and chronic respiratory failure with hypoxia; I48.92 Unspecified atrial flutter; G62.9 Polyneuropathy, unspecified; Z53.9 Procedure and treatment not carried out, unspecified reason; Z99.81 Dependence on supplemental oxygen; Z86.19 Personal history of other infectious and parasitic diseases; Z86.14 Personal history of Methicillin resistant Staphylococcus aureus infection; Z87.891 Personal history of nicotine dependence
CPT/HCPCS: 84484-PO; 96374; 97116-GP; 97161-GP; 97165-GO; 97535-GO; G8978-GP-CI; G8979-GP-CI; G8980-GP-CI; G8987-GO-CJ; G8988-GO-CH; J1650; J1940; J2930; J7512

== ENCOUNTER 2018-06-25 16:10 | Inpatient (IN) | payer OTHER ==
--- NOTE | 2018-06-25 16:18 | EDPHY ---
HPI/HX/ROS/PE/MDM Narrative: CHIEF COMPLAINT: Shortness of breath HPI: The patient is an anticoagulated (Eliquis) 63 y/o male with a history of COPD, atrial fluter, and CHF complaining of worsening shortness of breath for the past 3 days. On 03/16/18 he had a successful ablation for the atrial flutter. He was admitted to this hospital again on 04/07/18, 2 months ago, for similar symptoms. During this admission he was on BiPAP, given a high-dose of IV steroids. He was discharged home with an inhaler and a Prednisone taper. He reports that his symptoms today are similar to prior COPD exacerbations. Currently he is feeling exhausted from the work of breathing. He is normally on 2L of supplemental O2, but this has not been fulfilling his oxygen requirements. He is taking his medications as prescribed including the Diltiazem. He is not currently on any steroids. No headache, chest pain, abdominal pain, urinary or bowel complaints, numbness, paresthesias, fever. REVIEW OF SYSTEMS: Aside from elements discussed in the HPI, a comprehensive 10-point review of systems was reviewed and is negative. PMH: COPD, atrial flutter, CHF, MRSA finger cellulitis wound 06/2012, peripheral neuropathy, hep C SOCIAL HISTORY: Lives in [place], single, not employed PHYSICAL EXAM: General: Patient is alert, tripoding. ENT: Eyes are normal to inspection. ENT inspection normal. Neck: Normal inspection. Full range of motion. Respiratory: Has work of breathing. Poor air movement with inspiratory and expiratory wheezing. Cardiovascular: Regular rate and rhythm. Strong peripheral pulses. Normal cap refill. Abdomen: The abdomen is nontender to palpation. There are no peritoneal signs. There are normal bowel sounds. Back: Normal to inspection. No tenderness to palpation. Skin: Normal color. No rash. Warm and dry. Extremities: Normal appearance. Full range of motion. Neuro: Oriented x3. Normal motor function. Normal sensory function. ED Course: 1620: EKG was ordered and interpreted by myself. Please see [employer] system for official reading. 1643: I have paged respiratory therapy to set up a BiPAP with an inline neb; patient is comfortable with this plan. 500mL IV NS and 125mg IV Solu-Medrol administered. 1712: I reviewed patient's chest x-ray; there are not acute findings. He does have a chronic asymmetric left hemidiaphragm which is unchanged from prior chest x-ray's. 1720: Reassessed patient, he is feeling better after being placed on the BiPAP. 1800: Reassessed patient, he continues to feel better on the BiPAP. He will need to be admitted for COPD exacerbation and acute respiratory failure; he is comfortable with this plan. 1816: I consulted with the hospitalist service; Dr. rTan accepts admission of this patient. - Data Points Imaging Results: Imaging Impressions Chest X-Ray 06/25/18 16:42 Impression: Stable chest. Imaging: I viewed and interpreted images myself Laboratory Results: Laboratory Results 06/25/18 16:30 06/25/18 16:30 06/25/18 06/25/18 06/25/18 17:30 16:30 16:30 WBC 11.83 10^3/uL H 10^3/uL (3.80-9.50) RBC 4.38 10^6/uL L 10^6/uL (4.40-6.38) Hgb 13.7 g/dL g/dL (13.7-17.5) Hct 41.8 % % (40.0-51.0) MCV 95.4 fL fL (81.5-99.8) MCH 31.3 pg pg (27.9-34.1) MCHC 32.8 g/dL g/dL (32.4-36.7) RDW 13.2 % % (11.5-15.2) Plt Count 275 10^3/uL 10^3/uL (150-400) MPV 10.0 fL fL (8.7-11.7) Neut % (Auto) 64.7 % % (39.3-74.2) Lymph % (Auto) 17.3 % % (15.0-45.0) [place] % (Auto) 11.2 % % (4.5-13.0) Eos % (Auto) 5.4 % % (0.6-7.6) Baso % (Auto) 0.8 % % (0.3-1.7) Nucleat RBC Rel Count 0.0 % % (0.0-0.2) Absolute Neuts (auto) 7.65 10^3/uL H 10^3/uL (1.70-6.50) Absolute Lymphs (auto) 2.05 10^3/uL 10^3/uL (1.00-3.00) Absolute Monos (auto) 1.33 10^3/uL H 10^3/uL (0.30-0.80) Absolute Eos (auto) 0.64 10^3/uL H 10^3/uL (0.03-0.40) Absolute Basos (auto) 0.09 10^3/uL 10^3/uL (0.02-0.10) Absolute Nucleated RBC 0.00 10^3/uL 10^3/uL (0-0.01) Immature Gran % 0.6 % % (0.0-1.1) Immature Gran # 0.07 10^3/uL 10^3/uL (0.00-0.10) Puncture Site RIGHT RADIAL Patient Temperature 37.0 DEGREES DEGREES pCO2 59 mmHg H mmHg (34-38) pO2 123 mmHg H mmHg (65-75) Total CO2 31 mEq/L H mEq/L (23-27) ABG pH 7.31 L (7.35-7.45) ABG HCO3 29 mEq/L H mEq/L (22-26) ABG O2 Saturation 98 % H % (92-95) ABG Base Excess 1.6 mEq/L mEq/L (-2.5-2.5) O2 Concentration % % % (0-100) Sodium 144 mEq/L mEq/L (135-145) Potassium 4.9 mEq/L mEq/L (3.3-5.0) Chloride 106 mEq/L mEq/L (97-110) Carbon Dioxide 32 mEq/l H mEq/l (22-31) Anion Gap 6 mEq/L mEq/L (6-14) BUN 16 mg/dL mg/dL (7-23) Creatinine 0.8 mg/dL mg/dL (0.7-1.3) Estimated GFR > 60 Glucose 91 mg/dL mg/dL (70-100) Calcium 8.9 mg/dL mg/dL (8.5-10.4) Medications Given: Discontinued Medications Sodium Chloride (Ns) 500 mls @ 1,000 mls/hr IV EDNOW ONE PRN Reason: Protocol Stop: 06/25/18 17:10 Last Admin: 06/25/18 16:48 Dose: 500 mls Methylprednisolone Sodium Succinate (Solu-Medrol) 125 mg IVP EDNOW ONE Stop: 06/25/18 16:42 Last Admin: 06/25/18 16:48 Dose: 125 mg General Time Seen by Provider: 06/25/18 16:17 Initial Vital Signs: Initial Vital Signs Temperature (C) 36.9 C 06/25/18 16:12 Heart Rate 93 06/25/18 16:12 Respiratory Rate 20 06/25/18 16:12 Blood Pressure 126/84 H 06/25/18 16:12 O2 Sat (%) 94 06/25/18 16:12 O2 Delivery Mode Nasal Cannula O2 (L/minute) 2 Allergies/Adverse Reactions: No Known Allergies Allergy (Verified 06/25/18 16:15) Home Medications: Medication Instructions Recorded Albuterol [Proventil Inhaler HFA 1 - 2 puffs IH Q4 PRN 01/03/18 (*)] Aspirin [Aspirin 81mg (*)] 81 mg PO DAILY 01/03/18 Fluticasone/Salmeter 500/50Mcg 1 puffs IH BID 01/03/18 [Advair 500/50 (*)] Umeclidinium [place] [Incruse 1 puffs IH DAILY 01/03/18 Ellipta] Apixaban [Eliquis] 5 mg PO BID #60 tab 01/04/18 Omeprazole 20 mg PO DAILY PRN 02/02/18 Ipratropium/Albuterol [Duoneb (*)] 3 ml IH Q6 PRN 02/05/18 Diltiazem Cd [Cardizem ER 120 MG 240 mg PO DAILY #30 cap 02/11/18 (*)] LORazepam [Ativan (*)] 0.5 mg PO Q8HRS PRN #30 tab 04/13/18 guaiFENesin [Mucinex 600 MG (*)] 600 mg PO BID tab.er 04/13/18 predniSONE 20 mg PO DAILY #12 tablet 04/13/18 Departure - Departure Disposition: [facility] In[facility] Acute Clinical Impression: Chronic obstructive pulmonary disease with acute exacerbation Acute respiratory failure Qualifiers: Respiratory failure complication: hypoxia Qualified Code(s): J96.01 - Acute respiratory failure with hypoxia Condition: Fair Referrals: NONE *PRIMARY CARE P,. [Primary Care Provider] - As per Instructions Report Scribed for: Ender Mir Report Scribed by: Brooke Salcido Date of Report: 06/25/18 Time of Report: 16:18 Physician Review and Approval Statement: Portions of this note were transcribed by an ED scribe. I personally performed the history, physical exam, and medical decision making; and confirm the accuracy of the information in the transcribed note.
[2018-06-25] MEDS ORDERED: methylPREDNISolone SOD SUCC 125 MG/2 ML VIAL IVP ONE (16:41)
[2018-06-25] MEDS ORDERED: NS 500 ML IV ONE (16:41)
[2018-06-25 16:53] LABS: PLATELET COUNT 275 10^3/uL (150-400)
[2018-06-25] MEDS ORDERED: ALBUTEROL 3 ML DEYVIAL ONE (17:14)
[2018-06-25] MEDS ORDERED: ONDANSETRON 4 MG/2 ML VIAL IVP PRN (18:27)
[2018-06-25] MEDS ORDERED: ONDANSETRON DISINTEGRATING 4 MG TAB PO PRN (18:27)
[2018-06-25] MEDS ORDERED: ALBUTEROL 3 ML DEYVIAL IH PRN (18:27)
[2018-06-25] MEDS ORDERED: AZITHROMYCIN IV 500 MG in NS 250 ML IV SCH (18:30)
--- NOTE | 2018-06-25 19:28 | PDGENHP ---
History and Physical - Chief Complaint SOB - History of Present Illness 63 yo male with h/o oxygen dependent COPD and recent hospitalization resulting in discharge with outpatient palliative care presents to ED with shortness of breath. His symptoms started a few days ago and he notes slight increased cough with some sputum production. He reports subjective fevers, sweats. Denies CP. He notes feeling very anxious about his breathing. He uses Albuterol, Spiriva, Advair and nebulizers at home. He is followed by Dr. Walker. In the ED, he was satting 90% on 5L initially. His abg showed a pCO2 of 59 with a pH of 7.31. He was placed on bipap, but this is removed at the time of my evaluation. He is speaking in complete sentences and is currently requiring 4 LPM O2. History Information - Allergies/Home Medication List Allergies/Adverse Reactions: No Known Allergies Allergy (Verified 06/25/18 16:15) Home Medications: Albuterol [Proventil Inhaler HFA (*)] 1 - 2 puffs IH Q4 PRN 01/03/18 [Last Taken Unknown] Aspirin [Aspirin 81mg (*)] 81 mg PO DAILY 01/03/18 [Last Taken 02/04/18] Fluticasone/Salmeter 500/50Mcg [Advair 500/50 (*)] 1 puffs IH BID 01/03/18 [ Last Taken 02/04/18] Umeclidinium [place] [Incruse Ellipta] 1 puffs IH DAILY 01/03/18 [Last Taken 04/15] Omeprazole 20 mg PO DAILY PRN 02/02/18 [Last Taken Unknown] Ipratropium/Albuterol [Duoneb (*)] 3 ml IH Q6 PRN 02/05/18 [Last Taken Unknown] I have personally reviewed and updated: family history, medical history, social history, surgical history - Past Medical History COPD Additional medical history: hepatitis C--reportedly cured. MRSA cellulitis. peripheral neuropathy. chronic hypoxic respiratory failure--2-3L at baseline - Surgical History Reports: no pertinent surgical hx - Family History Positive for: diabetes type II (mother), stroke (father and sister) - Social History Smoking Status: Former smoker Additional social history: single, on disability Review of Systems Review of Systems: ROS: 10pt was reviewed & negative except for what was stated in HPI & below Physical Exam Physical Exam: Temp Pulse Resp BP Pulse Ox 36.9 C 81 18 119/72 91 L 06/25/18 16:12 06/25/18 18:51 06/25/18 18:51 06/25/18 18:51 06/25/18 18:51 O2 (L/minute) 2 Constitutional: no apparent distress Eyes: PERRL Ears, Nose, Mouth, Throat: moist mucous membranes Cardiovascular: regular rate and rhythym Respiratory: no respiratory distress, reduced air movement, other (very minimal air movement) Skin: warm Musculoskeletal: full muscle strength Neurologic: AAOx3 Psychiatric: interacting appropriately Lab Data & Imaging Review 06/25/18 16:30 06/25/18 16:30 WBC 11.83 10^3/uL (3.80-9.50) H 06/25/18 16:30 RBC 4.38 10^6/uL (4.40-6.38) L 06/25/18 16:30 Hgb 13.7 g/dL (13.7-17.5) 06/25/18 16:30 Hct 41.8 % (40.0-51.0) 06/25/18 16:30 MCV 95.4 fL (81.5-99.8) 06/25/18 16:30 MCH 31.3 pg (27.9-34.1) 06/25/18 16:30 MCHC 32.8 g/dL (32.4-36.7) 06/25/18 16:30 RDW 13.2 % (11.5-15.2) 06/25/18 16:30 Plt Count 275 10^3/uL (150-400) 06/25/18 16:30 MPV 10.0 fL (8.7-11.7) 06/25/18 16:30 Neut % (Auto) 64.7 % (39.3-74.2) 06/25/18 16:30 Lymph % (Auto) 17.3 % (15.0-45.0) 06/25/18 16:30 [place] % (Auto) 11.2 % (4.5-13.0) 06/25/18 16:30 Eos % (Auto) 5.4 % (0.6-7.6) 06/25/18 16:30 Baso % (Auto) 0.8 % (0.3-1.7) 06/25/18 16:30 Nucleat RBC Rel Count 0.0 % (0.0-0.2) 06/25/18 16:30 Absolute Neuts (auto) 7.65 10^3/uL (1.70-6.50) H 06/25/18 16:30 Absolute Lymphs (auto) 2.05 10^3/uL (1.00-3.00) 06/25/18 16:30 Absolute Monos (auto) 1.33 10^3/uL (0.30-0.80) H 06/25/18 16:30 Absolute Eos (auto) 0.64 10^3/uL (0.03-0.40) H 06/25/18 16:30 Absolute Basos (auto) 0.09 10^3/uL (0.02-0.10) 06/25/18 16:30 Absolute Nucleated RBC 0.00 10^3/uL (0-0.01) 06/25/18 16:30 Immature Gran % 0.6 % (0.0-1.1) 06/25/18 16:30 Immature Gran # 0.07 10^3/uL (0.00-0.10) 06/25/18 16:30 Puncture Site NONE GIVEN 06/25/18 19:05 Patient Temperature 37.3 DEGREES 06/25/18 19:05 pCO2 53 mmHg (34-38) H 06/25/18 19:05 pO2 92 mmHg (65-75) H 06/25/18 19:05 Total CO2 30 mEq/L (23-27) H 06/25/18 19:05 ABG pH 7.34 (7.35-7.45) L 06/25/18 19:05 ABG HCO3 28 mEq/L (22-26) H 06/25/18 19:05 ABG O2 Saturation 96 % (92-95) H 06/25/18 19:05 ABG Base Excess 1.9 mEq/L (-2.5-2.5) 06/25/18 19:05 Total O2 Concentration 4.0 LITERS 06/25/18 19:05 O2 Concentration % % (0-100) 06/25/18 17:30 Sodium 144 mEq/L (135-145) 06/25/18 16:30 Potassium 4.9 mEq/L (3.3-5.0) 06/25/18 16:30 Chloride 106 mEq/L (97-110) 06/25/18 16:30 Carbon Dioxide 32 mEq/l (22-31) H 06/25/18 16:30 Anion Gap 6 mEq/L (6-14) 06/25/18 16:30 BUN 16 mg/dL (7-23) 06/25/18 16:30 Creatinine 0.8 mg/dL (0.7-1.3) 06/25/18 16:30 Estimated GFR > 60 06/25/18 16:30 Glucose 91 mg/dL (70-100) 06/25/18 16:30 Calcium 8.9 mg/dL (8.5-10.4) 06/25/18 16:30 Visualized and Interpreted Chest x-ray results: Yes Chest X-Ray results: no infiltrate Visualized and Interpreted EKG results: Yes EKG Interpretation: Positive for: LVH, normal sinsus rhythm Assessment & Plan Assessment: Acute on chronic hypoxemic / hypercarbic respiratory failure 2/2 acute exacerbation of COPD - on 2.5 LPM at home, currently 4 LPM here after bipap. pH improved 7.31-->7.34, pCO2 59-->53 -IV solumedrol, nebs, azithromycin -wean O2 as able -send resp viral panel -has outpt palliative care, consider prn low dose roxanol for air hunger from palliative standpoint. He responded well to this in past though note risk of respiratory suppression and worsening acidemia -prn ativan for anxiety component A flutter s/p ablation - cont Dilt, eliquis Anxiety - prn ativan Hep C Full code Dispo - inpt, anticipate >48 hrs hospitalization for ongoing management of COPD exacerbation and hypoxemia/hypercarbia
[2018-06-25] MEDS ORDERED: AZITHROMYCIN IV 500 MG in D5W 250 ML IV ONE (19:30)
--- NOTE | 2018-06-25 21:06 | CPEKG ---
Test Reason : OPEN Blood Pressure : / mmHG Vent. Rate : 092 BPM Atrial Rate : 095 BPM P-R Int : 121 ms QRS Dur : 096 ms QT Int : 345 ms P-R-T Axes : 093 083 070 degrees QTc Int : 427 ms Sinus rhythm Borderline right axis deviation Probable left ventricular hypertrophy Confirmed by Ender Mir ([id number]) on 06/25/2018 9:05:41 PM Referred By: Confirmed By:Ender Mir
[2018-06-25] MEDS: IPRATROPIUM/ALBUTEROL 3 ML DEYVIAL IH SCH (21:14)
[2018-06-25] MEDS: LORazepam 2 MG/ML INJ IVP PRN (21:42)
[2018-06-26] MEDS: methylPREDNISolone SOD SUCC 125 MG/2 ML VIAL IVP SCH ×2 (00:08→05:13)
[2018-06-26] MEDS: IPRATROPIUM/ALBUTEROL 3 ML DEYVIAL IH SCH ×4 (05:17→19:52)
[2018-06-26 05:30] LABS: PLATELET COUNT 227 10^3/uL (150-400)
[2018-06-26] MEDS: ACETAMINOPHEN 325 MG TAB PO PRN ×2 (05:39→17:28)
[2018-06-26] MEDS: DILTIAZEM CD 120 MG CAP PO SCH (08:24)
[2018-06-26] MEDS: ASPIRIN 81 MG CHEWABLE TAB PO SCH (08:24)
--- NOTE | 2018-06-26 08:36 | ASMTLACE ---
ESDRAS Acuity / Level of Answers: Yes Care: Did the patient have an inpatient admission? Comorbidities - select Answers: Chronic pulmonary disease all that apply Congestive heart failure Opioid dependence / Chronic pain Other Notes: Aflutter; Hep C # of Emergency department Answers: 3-4 visits in the last 6 months Score: 15 Date Signed: 06/26/2018 08:35 AM Electronically Signed By:Alice Stroud
[2018-06-26] MEDS ORDERED: AZITHROMYCIN IV 500 MG in NS 250 ML IV SCH (09:00)
--- NOTE | 2018-06-26 09:06 | ASMTCMCOM ---
CM Note CM Note Notes: 63yo male admitted for SOB, Resp Failure, COPD, PNA. Recently discharged from [facility] w/Palliative care. He has a Hx of Chronic Resp Fail-2-3 L at baseline, Peripheral Neuropathy, Anxiety. He is a former smoker. Patient is disabled and lives with his father. CM to follow for discharge needs. Date Signed: 06/26/2018 09:05 AM Electronically Signed By:Leslie Nicholas LCSW
--- NOTE | 2018-06-26 10:11 | PDMN ---
Medical Necessity Medical necessity: MCG: COPD M100 A-2 days: worsening COPD symptoms-hypoxemia/ hypercarbia -SOB, slight increase in cough, and some sputum production. also fever, seats, very anxious. now req 4L. O2 after BiPAP, pH improving 7.31- 7.34, CO2 59-53 pt has outpt palliative care - anticipate > 2 MN for ongoing med nec. of COPD exacerbation
[2018-06-26] MEDS: FLUTICASONE/SALMETER 500/50MCG DISKUS IH SCH ×2 (11:04→19:52)
[2018-06-26] MEDS: UMECLIDINIUM BROMIDE IH SCH (11:05)
--- NOTE | 2018-06-26 11:07 | PDCONSULT ---
Measuring Machine Tender Note: HPI I was asked to see Ender Garcia by Dr. Rian Ortega for COPD and hypercarbic respiratory failure Jose is a very pleasant 63-year-old male with admitted with a severe COPD exacerbation and acute on chronic hypercarbic respiratory failure requiring noninvasive positive pressure ventilation. Jose is a long standing history of COPD due to prior tobacco use followed by Dr. Dave. He presented to the ER with 3 days of increasing shortness of breath and dyspnea on exertion coupled with cough. Patient uses baseline to 3 L of oxygen via nasal cannula and turned up his oxygen in attempts to improve his sensation of shortness of Breath. He describes mild rhinitis and cough and nasal congestion. He denies sick contacts, headaches, syncope, chest pain, abdominal swelling, fevers or chills, leg swelling, however cold intolerance. He reports compliance with his inhalers although per chart review his missed some doses and ran out of medications in the past. Patient has a history of atrial flutter and has been treated with an ablation. He is currently on diltiazem. He is uses Advair Diskus 500-50 as well as incruse Ellipta 62.5 mcg. Was last hospitalized in March with a COPD exacerbation. He denies a childhood history of asthma. He does have greater than 1 exacerbation per year requiring hospitalization and steroids. He has previously been intubated for a COPD exacerbation. He was previously anticoagulated for is atrial fibrillation is currently on a baby aspirin. He denies history of venous thromboembolism. Practice [address] Dave he was given a BiPAP machine with unclear settings and did not tolerate it. He has both obstructive sleep apnea and chronic hypercarbic respiratory failure with multiple ABGs with pCO2 greater than 55. He meets insurance criteria for noninvasive positive pressure ventilation at home. H & P Stated Complaint: SOB, COPD Time Seen by Provider: 06/25/18 16:17 Source: Patient Exam Limitations: No limitations - Personal History Current Tetanus Diphtheria and Acellular Pertussis (TDAP): Yes - Medical/Surgical History Hx Asthma: Yes Hx Chronic Respiratory Disease: Yes Hx Diabetes: No Hx Cardiac Disease: No Hx Renal Disease: No Hx Cirrhosis: No Hx Alcoholism: No Hx HIV/AIDS: No Hx Splenectomy or Spleen Trauma: No Other PMH: COPD, atrial flutter, CHF, MRSA finger cellulitis wound 06/2012, peripheral neuropathy, hep C - Family History Significant Family History: Diabetes - Social History Smoking Status: Former smoker (50+ pack-year history quit 10 years ago) Alcohol Use: Rarely Drug Use: None - Physical Exam Exam: Insert physical exam GEN: mild resp distress, resting in bed HEENT: PERRL, EOMI, MMM, OP clear, [place] 3 NECK: supple, trachea midline CHEST normal shape, no pes excavatum CVS: rrr no m/r/g PULM: Decreased air movement, mildly hyperexpanded, no rhonchi or rales. ABD: soft, NT, ND, NABS EXT: no edema, full ROM NEURO: A&Ox3, CN 2-12 GI PSYCH CAM negative, appropriate affect Constitutional: Initial Vital Signs Temperature (C) 36.9 C 06/25/18 16:12 Heart Rate 93 06/25/18 16:12 Respiratory Rate 20 06/25/18 16:12 Blood Pressure 126/84 H 06/25/18 16:12 O2 Sat (%) 94 06/25/18 16:12 O2 Delivery Mode Nasal Cannula O2 (L/minute) 2 Allergies/Adverse Reactions: No Known Allergies Allergy (Verified 06/25/18 16:15) Home Medications: Medication Instructions Recorded Albuterol [Proventil Inhaler HFA 1 - 2 puffs IH Q4 PRN 01/03/18 (*)] Aspirin [Aspirin 81mg (*)] 81 mg PO DAILY 01/03/18 Fluticasone/Salmeter 500/50Mcg 1 puffs IH BID 01/03/18 [Advair 500/50 (*)] Umeclidinium [place] [Incruse 1 puffs IH DAILY 01/03/18 Ellipta] Ipratropium/Albuterol [Duoneb (*)] 3 ml IH Q6 PRN 02/05/18 LORazepam [Ativan (*)] 0.5 mg PO Q8HRS PRN #30 tab 04/13/18 Cholecalciferol Vit D3 [Vitamin D3 1,000 units PO DAILY 06/25/18 (*)] Cyanocobalamin [Vitamin B12 (*)] 1,000 mcg PO DAILY 06/25/18 Diltiazem Cd [Cardizem ER 120 MG 120 mg PO DAILY 06/25/18 (*)] Assessment & Plan Assessment: 63-year-old male admitted with acute on chronic hypercarbic respiratory failure due to acute exacerbation of COPD. Mild viral URI symptoms may have been trigger for COPD exacerbation. Patient has frequent exacerbations. Given lack of insight into disease and treatments query whether not patient has appropriate medication adherence. # AE COPD Triggered by viral URI. Patient has a frequent exacerbating his peripheral eosinophilia. Continue azithromycin, discharged on azithromycin 250 mg daily to continue for at least 3 months per recent trial showing clinical benefit and decreased readmissions for COPD exacerbation. Will need outpatient EKG and audiology exam. - azithromycin 250 mg daily - start Singulair, to be continued on discharge - RT to perform inhaler teaching - outpatient referral to pulmonary rehab - Defer for outpatient BiPAP to patient's primary crosscutter rolled glass, doc dave # acute on chronic hypercarbic respiratory failure. Due to above. Patient meets Medicare requirements for home noninvasive positive pressure ventilation. Per report patient has not tolerated in the past although he has tried CPAP in the lower BiPAP setting before being followed with Dr. Dave. Dr. Dave also as previously recommended BiPAP. Patient has had multiple ABGs a pCO2 greater than 55. May consider again as an outpatient both improved quality life and reduce recurrent exacerbations and admissions - repeat ABG - pending above may need BiPAP again # question of post infectious organizing pneumonia Seen on prior CT scan. May consider repeat CT scan in the future after patient recovers from acute illness. History of atrial flutter -status post ablation. Previously on Eliquis. Now baby aspirin and diltiazem. Continue for now. Normal sinus on exam Results I personally reviewed the laboratory and radiographic images as well as a formal radiologist reads. -chest x-ray notable for mildly hyperinflated lungs with mildly increased bibasilar interstitial markings, mild leukocytosis and peripheral eosinophilia and is improving. Normal serum creatinine. Elevated serum bicarbonate.
[2018-06-26] MEDS: predniSONE 20 MG TAB PO SCH (15:08)
--- NOTE | 2018-06-26 16:39 | HOSPPROG ---
Hospitalist Progress Note Assessment/Plan: Assessment: 63-year-old male presents with acute COPD exacerbation resulting in acute on chronic hypercapnic and hypoxic respiratory failure Plan: 1. Acute COPD exacerbation. Evidenced by poor expiratory air movement bilaterally resulting in acute hypercapnia symptomatic shortness of breath -chest x-ray without focal infiltrate (personally interpreted), respiratory viral panel pending -discussed with Dr. Cooley, he and I both agree the patient can adjust to oral prednisone today, continue on scheduled nebs, recommends starting singulair -continue on high-dose Advair, Ellipta 2. Acute on chronic hypercapnic and hypoxic respiratory failure. Evidenced by pCO2 of 59 the pH of 7.3 on arterial blood gas indicating an acute component to his carbon dioxide retention, symptomatic shortness of breath and labored breathing requiring ICU respiratory monitor -repeat ABG now to gauge whether PCU to has improved from 53 and whether pH has improved from 7.34 -patient initially required BiPAP therapy with symptomatic shortness of breath, has been weaned to 4-5 L nasal cannula oxygen, requires 3 L at baseline -proximal as needed for air hunger -patient is per the [facility] program, further discussion with the patient elicits that he is not currently viewing his respiratory failure as an end of life scenario and I recommend ongoing outpatient counseling through the pace program to ensure that services alignment the patient's goals of care 3. Atrial fibrillation. Paroxysmal, continue calcium channel jojo and aspirin Diet. Regular Prophylaxis. High risk patient, Lovenox for Code. Full Disposition. Anticipated discharge uncertain, adjust to med surge status. Subjective: ongoing cough Objective: Vital Signs Temp Pulse Resp BP Pulse Ox 36.6 C 97 26 H 126/78 H 92 06/26/18 08:00 06/26/18 12:08 06/26/18 12:08 06/26/18 08:24 06/26/18 12:08 Microbiology 06/25/18 20:22 Respiratory Panel (PCR) - Final Nasal, Sinus - Swab No Organism Detected Laboratory Results 06/26/18 05:20 06/26/18 05:20 06/25/18 06/26/18 06/27/18 05:59 05:59 05:59 Intake Total 1848 1150 Output Total 900 Balance 948 1150 - Physical Exam Constitutional: no apparent distress, not in pain, chronically ill appearing, uncomfortable Cardiovascular: tachycardia, No systolic murmur, No irregularly irregular, No edema Respiratory: reduced air movement (shortened insp and exp phases), expiratory wheeze, No bronchial breath sounds, No respiratory distress Gastrointestinal: normoactive bowel sounds, soft, non-tender abdomen, No distension Neurologic: AAOx3 Psychiatric: interacting appropriately, not anxious, not encephalopathic, thought process linear ICD10 Worksheet Patient Problems: Problems Problem Status Onset Acute respiratory failure Acute Chronic obstructive pulmonary disease with acute exacerbation Acute Atrial flutter with rapid ventricular response Acute COPD exacerbation Acute COPD with acute exacerbation Acute Community acquired bacterial pneumonia Acute Supraventricular tachycardia Acute
[2018-06-26] MEDS ORDERED: MONTELUKAST SODIUM 10 MG TAB PO SCH (18:00)
[2018-06-26] MEDS: LORazepam 2 MG/ML INJ IVP PRN (21:14)
[2018-06-27] MEDS: IPRATROPIUM/ALBUTEROL 3 ML DEYVIAL IH SCH ×3 (05:42→15:15)
[2018-06-27] MEDS: ACETAMINOPHEN 325 MG TAB PO PRN (07:20)
[2018-06-27 07:44] VITALS: BP 112/64
[2018-06-27] MEDS: ASPIRIN 81 MG CHEWABLE TAB PO SCH (08:04)
[2018-06-27] MEDS: DILTIAZEM CD 120 MG CAP PO SCH (08:04)
[2018-06-27] MEDS: predniSONE 20 MG TAB PO SCH (08:04)
[2018-06-27] MEDS ORDERED: BENZONATATE 100 MG CAP PO PRN (08:23)
[2018-06-27] MEDS ORDERED: guaiFENesin/CODEINE PHOS 10 ML UDCUP PO PRN (08:23)
[2018-06-27] MEDS ORDERED: AZITHROMYCIN 250 MG TAB PO SCH (09:00)
[2018-06-27] MEDS: UMECLIDINIUM BROMIDE IH SCH (09:43)
[2018-06-27] MEDS: FLUTICASONE/SALMETER 500/50MCG DISKUS IH SCH (09:43)
--- NOTE | 2018-06-27 10:50 | PDINTPN ---
Forestry Scientist Progress Note Assessment/Plan: Assessment and Plan: 63-year-old male admitted with acute on chronic hypercarbic respiratory failure due to acute exacerbation of COPD. Mild viral URI symptoms may have been trigger for COPD exacerbation. Patient has frequent exacerbations. Given lack of insight into disease and treatments query whether not patient has appropriate medication adherence. # AE COPD Triggered by viral URI. Patient has frequent exacerbations and peripheral eosinophilia. Will need outpatient EKG and audiology exam. - azithromycin 250 mg daily to be continued on discharge with 3 month supply - start Singulair, to be continued on discharge - patient is already approved for pulmonary rehabilitation, needs to schedule appointment - appreciate inhaler teaching from RT - patient meets Medicare guidelines for home noninvasive positive pressure ventilation with BiPAP. Dr. Walker has offered patient this in the past and he has declined. Patient is now willing. Follow up as outpatient # acute on chronic hypercarbic respiratory failure. Historically, Patient has had multiple ABGs a pCO2 greater than 55. -treat as above # question of post infectious organizing pneumonia Seen on prior CT scan. May consider repeat CT scan in the future after patient recovers from acute illness. # History of atrial flutter -status post ablation. NSR on exam. Previously on Eliquis. Now on baby aspirin and diltiazem. # Dispo Patient has follow-up with Dr. Walker scheduled for tomorrow. Patient appears appropriate for discharge from a pulmonary perspective Subjective: Slept well overnight. Patient feels his breathing is significantly improved today. Case management spoke with pulmonary rehabilitation. Patient is already approved for pulmonary rehabilitation. Denies cough, fevers chills, chest pain, leg swelling. Objective: Vital Signs Temp Pulse Resp BP Pulse Ox 36.8 C 80 18 112/64 95 06/27/18 07:42 06/27/18 08:04 06/27/18 07:42 06/27/18 07:42 06/27/18 07:42 Microbiology 06/25/18 20:22 Respiratory Panel (PCR) - Final Nasal, Sinus - Swab No Organism Detected Laboratory Results 06/26/18 05:20 06/26/18 05:20 06/26/18 06/27/18 06/28/18 05:59 05:59 05:59 Intake Total 1848 2200 Output Total 900 Balance 948 2200 Laboratory Tests 06/26/18 11:58 pCO2 42 H pO2 88 H ABG pH 7.41 Physical Exam - Physical Exam General Appearance: alert, no apparent distress EENT: PERRL/EOMI, normal ENT inspection, pharynx normal Neck: non-tender, supple Respiratory: lungs clear, normal breath sounds, No respiratory distress, No accessory muscle use, No decreased breath sounds, No wheezing Cardiac/Chest: regular rate, rhythm, No edema, No JVD Abdomen: non-tender, soft, No distended Male Genitalia: deferred Rectal: deferred Skin: normal color, warm/dry, No cyanosis Extremities: normal range of motion, No non-tender, No pedal edema Neuro/Psych: no motor/sensory deficits, alert, normal mood/affect, oriented x 3 ICD10 Worksheet Patient Problems: Problems Problem Status Onset Acute respiratory failure Acute Chronic obstructive pulmonary disease with acute exacerbation Acute Atrial flutter with rapid ventricular response Acute COPD exacerbation Acute COPD with acute exacerbation Acute Community acquired bacterial pneumonia Acute Supraventricular tachycardia Acute
--- NOTE | 2018-06-27 13:07 | PDIAF ---
- Diagnosis Diagnosis: COPD exacerbation Code Status: Full Code - Medication Management Discharge Medications: Medications to Continue on Transfer Albuterol [Proventil Inhaler HFA (*)] 1 - 2 puffs IH Q4 PRN 01/03/18 [Last Taken 06/25/18 16:00] Aspirin [Aspirin 81mg (*)] 81 mg PO DAILY 01/03/18 [Last Taken 06/25/18 08:00] Fluticasone/Salmeter 500/50Mcg [Advair 500/50 (*)] 1 puffs IH BID 01/03/18 [ Last Taken 06/25/18 08:00] Umeclidinium [place] [Incruse Ellipta] 1 puffs IH DAILY 01/03/18 [Last Taken 08:00] LORazepam [Ativan (*)] 0.5 mg PO Q8HRS PRN #30 tab 04/13/18 [Last Taken 06/11/18 ] Cholecalciferol Vit D3 [Vitamin D3 (*)] 1,000 units PO DAILY 06/25/18 [Last Taken 06/24/18 08:00] Cyanocobalamin [Vitamin B12 (*)] 1,000 mcg PO DAILY 06/25/18 [Last Taken 08:00] Diltiazem Cd [Cardizem ER 120 MG (*)] 120 mg PO DAILY 06/25/18 [Last Taken 06/25 08:00] Azithromycin [Zithromax] 250 mg PO DAILY #3 tab 06/27/18 [Last Taken Unknown] Benzonatate [Tessalon Pearles] 200 mg PO TID PRN #30 cap 06/27/18 [Last Taken Unknown] Ipratropium/Albuterol [Duoneb (*)] 3 ml IH Q6 #40 deyvial 06/27/18 [Last Taken Unknown] Montelukast Sodium [Singulair 10 mg (*)] 10 mg PO DAILY@1800 #30 tab 06/27/18 [ Last Taken Unknown] predniSONE 40 mg PO DAILY #18 tablet 06/27/18 [Last Taken Unknown] Care Home Antibiotics: Azithromycin 250mg daily PO x 3 days Product Safety Coordinator Antibiotic Stop Date: 06/30/18 Additional Medication Instructions: prednisone taper as written Discharge Medications: Refer to the Discharge Home Medication list for PRN reason. - Orders Services needed: Home Care, Registered Nurse Home Care Face to Face: I certify that this patient was under my care and that I had the required [id number] encounter meeting the encounter requirements on the discharge day. My findings support the fact that the patient is homebound as defined in Home Care Face to Face Continued: [facility] Chapter 7 Medicare Benefits Manual 30.1.1 , The condition of the patient is such that there exists a normal inability to leave home and consequently, leaving home would require a considerable and taxing effort. Isolation Type: None Oxygen: 3LPM continuous Diet Recommendation: no restrictions on diet Weigh Patient: weekly Issa: Not applicable - Follow Up Care Current Providers and Referrals: NONE *PRIMARY CARE P,. [Unknown] - As per Instructions Alyx Smith MD [Medical Doctor] - Estrada Walker MD [Medical Doctor] - (please follow-up tomorrow morning as scheduled )
--- NOTE | 2018-06-27 14:11 | ASDISCHSUM ---
Discharge Information Plan Status:Home with Home Health Medically Cleared to Leave:06/27/2018 Discharge Date:06/27/2018 CM D/C Disposition:Home Health Service ADT D/C Disposition:Home Health Service Projected Discharge Date:06/27/2018 03:00 PM Transportation at D/C:Taxicab Discharge Delay Reason: Follow-Up Date:06/27/2018 03:00 PM Discharge Slot:2 - 12:01 pm - 18:00 pm Final Diagnosis:COPD, SOB, PNA Placement Information Patient Contact Information Contact Name:VITA Relationship:Father Address:[address] Work Phone: [facility]:[place] Alternate Phone: [facility]/Zip Code:[place] [address] Email: Financial Information Financial Class:HMO and PPO Plans Primary Plan Desc:VENTURA VERA Primary Plan Number:[id number] Secondary Plan Desc: Secondary Plan Number: Assessment Information LACE LACE Acuity / Level of Answers: Yes Care: Did the patient have an inpatient admission? Comorbidities - select Answers: Chronic pulmonary disease all that apply Congestive heart failure Opioid dependence / Chronic pain Other Notes: Harsh; Marcos C # of Emergency department Answers: 3-4 visits in the last 6 months Score: 15 Date Signed: 06/26/2018 08:35 AM Electronically Signed By:Alice Stroud [facility] CM Progress Note CM Note CM Note Notes: 63yo male admitted for SOB, Resp Failure, COPD, PNA. Recently discharged from [facility] w/Palliative care. He has a Hx of Chronic Resp Fail-2-3 L at baseline, Peripheral Neuropathy, Anxiety. He is a former smoker. Patient is disabled and lives with his father. CM to follow for discharge needs. Date Signed: 06/26/2018 09:05 AM Electronically Signed By:Leslie Nicholas LCSW Case Management Discharge Plan Note Case Management Discharge Discharge Order Complete? Answers: Yes Patient to Obtain Answers: Other Notes: VENTURA Vera Medications Transportation Arranged Answers: Taxi - Self Pay Transport will Pick (Date 06/27/2018 03:00 PM & Time) Faxed Final Orders Answers: Yes Notes: VENTURA Vera Family Notified Answers: Yes Notes: Patient has informed hi s father Discharge Comments Notes: Patient has been discharged home with VENTURA Vera managing his care. He is not involved with Palliative as an out pt service according to VENTURA Vera who would be in charge of making those arrangements. Patient lives with his elderly father. Date Signed: 06/27/2018 02:10 PM Electronically Signed By:Leslie Nicholas LCSW Intervention Information
--- NOTE | 2018-06-27 15:04 | PDDCSUM ---
Discharge Summary Discharge Summary: DISCHARGE SUMMARY FOLLOW-UP ITEMS: Evaluate home service needs DATE OF ADMISSION: 06/25/2018 DATE OF DISCHARGE: 06/27/2018 DISCHARGE DIAGNOSES: 1. Acute COPD exacerbation 2. Acute on chronic hypercapnic and hypoxic respiratory failure 3. Paroxysmal atrial fibrillation CONSULTATIONS: Pulmonary PROCEDURES / IMAGING: Chest x-ray demonstrating no focal infiltrate CHIEF COMPLAINT: Acute shortness of breath SUBJECTIVE: Patient is feeling well at time of discharge, his shortness of breath has resolved PHYSICAL EXAM ON DISCHARGE: Systolic blood pressure 110, heart rate 80, satting well on 3-4 L nasal cannula , afebrile overnight, alert awake oriented x3, lungs are clear to auscultation with somewhat shortened expiratory phase but significantly improved from day prior, heart rhythm is currently regular LABS ON DISCHARGE: ABG demonstrates pH 7.41 pCO2 42 HOSPITAL COURSE BY PROBLEM: The patient presented with acute COPD exacerbation evidenced by poor expiratory air movement bilaterally resulting in acute hypercapnic and hypoxic respiratory failure evidenced by a pCO2 of 59 with a pH 7.3 arterial blood gas comma in the context of symptomatic shortness of breath and labored breathing requiring ICU respiratory monitoring. He initially received BiPAP therapy and his pCO2 improved as did his pH. He was placed on scheduled duo nebs as well as high- dose IV steroids, and his blood gas further stabilized in the ICU. After an additional 24 hr, he experienced significant improvement in his symptoms as well as remain expiratory air movement comma and I recommended ongoing scheduled duo nebs at home as well as continuing his scheduled high-dose Advair , Ellipta, and a 2 week prednisone taper. He will be seen in the outpatient setting by his primary ecommerce analyst Dr. Estrada Walker tomorrow, and they will continue to discuss outpatient Pulmonary care as well as possible pulmonary rehab. Patient will have as needed Tessalon Perles for nocturnal cough and he currently has Roxanol prescribed by his palliative care provider for any air hunger. He is currently enrolled in the [facility] and they will determine whether the patient requires home care services after discharge. DISCHARGE MEDICATIONS: Please see official discharge medication reconciliation sheet in chart , duo nebs scheduled 4 times daily, prednisone taper over 2 weeks, azithromycin 250 x 3 subsequent days, as needed Tessalon Perles, scheduled diltiazem and aspirin. DISCHARGE INSTRUCTIONS: Please follow up with Dr. Walker tomorrow as scheduled. TIME SPENT: Greater than 30 minutes were spent on direct patient care, as well as discharge planning and preparation.
== END 2018-06-27 15:15 | disposition home health service (06) | DRG 190 ==
LOC: F2N 19:42
PROVIDERS: ADMIT Hospitalist; ATTEND Hospitalist
DX: J44.1 Chronic obstructive pulmonary disease with (acute) exacerbation (principal); J96.21 Acute and chronic respiratory failure with hypoxia; J96.12 Chronic respiratory failure with hypercapnia; E86.9 Volume depletion, unspecified; I48.0 Paroxysmal atrial fibrillation; F41.9 Anxiety disorder, unspecified; B19.20 Unspecified viral hepatitis C without hepatic coma; Z87.891 Personal history of nicotine dependence
CPT/HCPCS: 96374; 97161-GP; 97165-GO; 97535-GO; J0456; J2060; J2930; J7512; J7613